=== PATIENT | female | born 1965 | race Caucasian/White ===

== ENCOUNTER 2016-05-09 15:32 | Emergency (ER) | payer OTHER, MEDICAID ==
[2016-05-09 15:39] VITALS: RESP 18
[2016-05-09] MEDS ORDERED: LORazepam 1 MG TAB PO ONE (15:42)
--- NOTE | 2016-05-09 15:45 | EDPHY ---
H & P Stated Complaint: WANTS ATIVAN REFILL Time Seen by Provider: 05/09/16 15:43 HPI/ROS: CHIEF COMPLAINT: Requesting Ativan HISTORY OF PRESENT ILLNESS: The patient presents to the emergency department via paramedics requesting Ativan. Due to the inclement weather she has been unable to get her typical Ativan. She takes this medication on a p.r.n. basis for bipolar mood disorder. The patient denies any acute medical complaints. She specifically denies chest pain, shortness of breath, fever, numbness, weakness. The patient does have a chronic resting tremor which has not acutely worsened. REVIEW OF SYSTEMS: A comprehensive 10 point review of systems is otherwise negative aside from elements mentioned in the history of present illness. Source: Patient Exam Limitations: No limitations - Personal History Current Tetanus/Diphtheria Vaccine: Yes Current Tetanus Diphtheria and Acellular Pertussis (TDAP): Yes - Medical/Surgical History Hx Asthma: No Hx Chronic Respiratory Disease: No Hx Diabetes: No Hx Cardiac Disease: No Hx Renal Disease: No Hx Cirrhosis: No Hx Alcoholism: No Hx HIV/AIDS: No Hx Splenectomy or Spleen Trauma: No Other PMH: bipolar, anxiety, appy, tremors - Social History Smoking Status: Current every day smoker - Physical Exam Exam: General Appearance: Alert, anxious Eyes: Pupils equal and round no pallor or injection ENT, Mouth: Mucous membranes moist Respiratory: There are no retractions, lungs are clear to auscultation Cardiovascular: Regular rate and rhythm Gastrointestinal: Abdomen is soft and nontender, no masses, bowel sounds normal Neurological: A&O, normal motor function, normal sensory exam, normal cranial nerves, resting tremor Skin: Warm and dry, no rashes Musculoskeletal: Neck is supple nontender Extremities: symmetrical, full range of motion Psychiatric: Patient is oriented X 3, there is no agitation, no suicidal ideation, no homicidal ideation Constitutional: Initial Vital Signs Temperature (C) 36.5 C 05/09/16 15:32 Heart Rate 96 05/09/16 15:32 Respiratory Rate 18 05/09/16 15:32 Blood Pressure 131/95 H 05/09/16 15:32 O2 Sat (%) 94 05/09/16 15:32 O2 Delivery Mode Room Air Allergies/Adverse Reactions: haloperidol [From Haldol] Allergy (Verified 10/05/13 16:46) haloperidol lactate [From Haldol] Allergy (Verified 10/05/13 16:46) lithium Allergy (Verified 10/05/13 16:46) marijuana Allergy (Verified 08/05/15 21:04) propranolol [Propranolol] Allergy (Verified 10/05/13 16:46) Home Medications: Medication Instructions Recorded Divalproex [Depakote] 1,000 mg PO DAILY 05/02/11 Paliperidone [Invega] 117 mg PO 05/02/11 QUETIAPINE FUMARATE [Seroquel] 300 mg PO DAILY 05/02/11 LORazepam [Ativan] 1 mg PO 12/10/14 LORazepam [Ativan] 1 mg PO BID PRN #8 tab 05/09/16 Medical Decision Making ED Course/Re-evaluation: The patient presents to the emergency department with anxiety and requesting an Ativan prescription. She is not suicidal or homicidal. The patient was given 1 mg of oral Ativan in the ED. The a patient will be given a prescription of Ativan for 3 days. She has been informed she needs to get further refills from her primary prescriber. - Data Points Medications Given: Discontinued Medications Lorazepam (Ativan) 1 mg PO EDNOW ONE Stop: 05/09/16 15:43 Last Admin: 05/09/16 15:46 Dose: 1 mg Departure - Departure Disposition: Home, Routine, Self-Care Clinical Impression: Anxiety Condition: Good Instructions: Anxiety (ED) Additional Instructions: 1. Please follow up with [facility] for your regular medications. 2. We will not provide Ativan prescriptions from the emergency department in the future. Referrals: Vishal Ferreira MD [Primary Care Provider] - As per Instructions
[2016-05-09 16:43] VITALS: BP 133/92; PULSE 98; TEMP 97.9; O2SAT 93
== END 2016-05-09 16:42 | disposition home or self-care (01) ==
LOC: EDUNIT#
DX: F41.9 Anxiety disorder, unspecified (principal); F17.200 Nicotine dependence, unspecified, uncomplicated

== ENCOUNTER 2016-05-30 15:03 | Emergency (ER) | payer OTHER, MEDICAID ==
--- NOTE | 2016-05-30 15:16 | EDPHY ---
H & P Time Seen by Provider: 05/30/16 15:14 HPI/ROS: CHIEF COMPLAINT: Anxiety HISTORY OF PRESENT ILLNESS: The patient has a history of chronic bipolar mood disorder. She was at the [facility] earlier today and received 2 mg of Ativan for an episode of anxiety. The patient reportedly was offered observation at the [facility] however preferred to be transferred to the emergency department for observation. In the ED she reports she has been compliant with her typical medications for bipolar mood disorder including injectable Invega, Depakote and Seroquel. The patient states she received Ativan approximately 40 minutes ago and is starting to feel better. She denies any suicidal or homicidal ideation. The patient denies any auditory or visual hallucinations. REVIEW OF SYSTEMS: A comprehensive 10 point review of systems is otherwise negative aside from elements mentioned in the history of present illness. Source: Patient Exam Limitations: No limitations - Medical/Surgical History Hx Asthma: No Hx Chronic Respiratory Disease: No Hx Diabetes: No Hx Cardiac Disease: No Hx Renal Disease: No Hx Cirrhosis: No Hx Alcoholism: No Hx HIV/AIDS: No Hx Splenectomy or Spleen Trauma: No Other PMH: bipolar, anxiety, appy, tremors - Social History Smoking Status: Current every day smoker - Physical Exam Exam: General Appearance: Alert, slightly disheveled, no acute distress Eyes: Pupils equal and round no pallor or injection ENT, Mouth: Mucous membranes moist Respiratory: There are no retractions, lungs are clear to auscultation Cardiovascular: Regular rate and rhythm Gastrointestinal: Abdomen is soft and nontender, no masses, bowel sounds normal Neurological: Grossly normal motor exam with 5/5 strength all 4 extremities Skin: Warm and dry, no rashes Musculoskeletal: Neck is supple nontender Extremities: symmetrical, full range of motion Psychiatric: Anxious, alert and oriented x3, denies suicidal ideation, denies suicidal ideation, denies hallucinations Constitutional: Initial Vital Signs Temperature (C) 36.8 C 05/30/16 15:22 Heart Rate 113 H 05/30/16 15:22 Respiratory Rate 18 05/30/16 15:22 Blood Pressure 146/93 H 05/30/16 15:22 O2 Sat (%) 95 05/30/16 15:22 O2 Delivery Mode Room Air Allergies/Adverse Reactions: haloperidol [From Haldol] Allergy (Verified 10/05/13 16:46) haloperidol lactate [From Haldol] Allergy (Verified 10/05/13 16:46) lithium Allergy (Verified 10/05/13 16:46) marijuana Allergy (Verified 08/05/15 21:04) propranolol [Propranolol] Allergy (Verified 10/05/13 16:46) Home Medications: Medication Instructions Recorded Divalproex [Depakote] 1,000 mg PO DAILY 05/02/11 Paliperidone [Invega] 117 mg PO 05/02/11 QUETIAPINE FUMARATE [Seroquel] 300 mg PO DAILY 05/02/11 LORazepam [Ativan] 1 mg PO 12/10/14 LORazepam [Ativan] 1 mg PO BID PRN #8 tab 05/09/16 Medical Decision Making ED Course/Re-evaluation: The patient does not meet criteria for 72 hour mental health hold. She was offered observation in the ED for her anxiety. She received Ativan prior to arrival. Update at 4:30 p.m.: The patient states her anxiety has resolved. She continues to deny suicidal or homicidal ideation. She would like to be discharged from the ED. She will follow up with [facility] as scheduled for her regular psychiatric medications. Differential Diagnosis: Differential diagnosis considered includes bipolar mood disorder, anxiety, psychosis Departure - Departure Disposition: Home, Routine, Self-Care Clinical Impression: Anxiety Condition: Good Instructions: Anxiety (ED) Referrals: Vishal Ferreira MD [Primary Care Provider] - As per Instructions
[2016-05-30 15:24] VITALS: RESP 18
[2016-05-30 16:55] VITALS: BP 120/88; PULSE 116; TEMP 97.5; O2SAT 93
== END 2016-05-30 17:00 | disposition home or self-care (01) ==
LOC: EDUNIT#
DX: F41.9 Anxiety disorder, unspecified (principal); F17.200 Nicotine dependence, unspecified, uncomplicated

== ENCOUNTER 2017-03-23 12:44 | Emergency (ER) | payer OTHER, MEDICAID ==
--- NOTE | 2017-03-23 12:49 | EDPHY ---
H & P - Medical/Surgical History Hx Asthma: No Hx Chronic Respiratory Disease: No Hx Diabetes: No Hx Cardiac Disease: No Hx Renal Disease: No Hx Cirrhosis: No Hx Alcoholism: No Hx HIV/AIDS: No Hx Splenectomy or Spleen Trauma: No Other PMH: bipolar, anxiety, appy, tremors - Social History Smoking Status: Current every day smoker Time Seen by Provider: 03/23/17 12:48 Constitutional: Initial Vital Signs Temperature (C) 37.1 C 03/23/17 12:44 Heart Rate 101 H 03/23/17 12:44 Respiratory Rate 16 03/23/17 12:44 Blood Pressure 132/94 H 03/23/17 12:44 O2 Sat (%) 93 03/23/17 12:44 O2 Delivery Mode Room Air Allergies/Adverse Reactions: haloperidol [From Haldol] Allergy (Verified 10/05/13 16:46) haloperidol lactate [From Haldol] Allergy (Verified 10/05/13 16:46) lithium Allergy (Verified 10/05/13 16:46) marijuana Allergy (Verified 08/05/15 21:04) propranolol [Propranolol] Allergy (Verified 10/05/13 16:46) Home Medications: Medication Instructions Recorded Divalproex [Depakote] 1,000 mg PO DAILY 05/02/11 Paliperidone [Invega] 117 mg PO 05/02/11 QUETIAPINE FUMARATE [Seroquel] 300 mg PO DAILY 05/02/11 LORazepam [Ativan] 1 mg PO 12/10/14 LORazepam [Ativan] 1 mg PO BID PRN #8 tab 05/09/16 Medical Decision Making ED Course/Re-evaluation: CHIEF COMPLAINT: Psychiatric evaluation HISTORY OF PRESENT ILLNESS: 52-year-old female with longstanding bipolar disorder diagnosis and treatment. She is like her treatments not working as well anymore. Things are making her very anxious and she does not feel like she is functioning well. She denies hallucinations. She denies any suicidality or homicidality. She states that she just does not feel safe in she feels like she can make good decisions and she feels very shaky and very anxious. This has been worsening over the last several days. She is specifically requesting to be admitted to [facility]. REVIEW OF SYSTEMS: A 10 point review of systems was performed and is negative with the exception of the elements mentioned in the history of present illness. PHYSICAL EXAM: General Appearance: Alert, well hydrated, appropriate, and non-toxic appearing. Head: Atraumatic without scalp tenderness or obvious injury Eyes: Pupils equal, round, reactive to light and accommodation, EOMI, no trauma , no injection. Ears: Clear bilaterally, no perforation, normal landmarks Nose: Atraumatic, no rhinorrhea, clear. Throat: There is no erythema or exudates, no lesions, normal tonsils, mucus membranes moist. Neck: Supple, 2+ carotid upstroke, nontender, no lymphadenopathy. Respiratory: No retractions, no distress, no wheezes, and no accessory muscle use. Lungs are clear to auscultation bilaterally. Cardiovascular: Regular rate and rhythm, no murmurs, rubs, or gallops. Bilateral carotid, radial, dorsalis pedis, and posterior tibial pulses intact. Good capillary refill all extremities. Gastrointestinal: Abdomen is soft, nontender, non-distended, no masses, no rebound, no guarding, no peritoneal signs. Musculoskeletal: Normal active ROM of all extremities, atraumatic. Neurological: Alert, appropriate, and interactive. The patient has normal DTRs and non-focal cranial nerves, motor, sensory, and cerebellar exam. Skin: No rashes, good turgor, no nodules on palpation. Past medical history: Bipolar disorder Past surgical history: Noncontributory Family history: Noncontributory Social history: Single, not employed, uses cigarettes, denies alcohol or drug abuse DIFFERENTIAL DIAGNOSIS: The differential diagnosis for the patient's depression included but was not limited to functional and major depression, situational depression, medication side effect, drugs, and alcohol abuse. MEDICAL DECISION MAKING: Patient is in no acute distress and is hemodynamically stable. We are awaiting psychiatric team's evaluation. Patient has known history of psychiatric disorders and is here for evaluation. We will attempt to place this patient in [place] if she meets criteria based on the psychiatric evaluation. ( Bon Smith) I assumed care of the patient at 2:00 p.m. pending psychiatric evaluation. Update at 6:00 p.m.: The patient was seen by [facility]. She is well known to their service. She currently is bola for safety. She is not suicidal or homicidal. She would like to be discharged home and follow up with [facility] as an outpatient tomorrow. This is reasonable. The patient does not meet criteria for a involuntary psychiatric hold. (Bulmaro Silver) - Data Points Laboratory Results: Laboratory Results 03/23/17 13:20 03/23/17 13:20 03/23/17 03/23/17 03/23/17 13:20 13:20 13:20 WBC 8.97 10^3/uL 10^3/uL (3.80-9.50) RBC 4.18 10^6/uL 10^6/uL (4.18-5.33) Hgb 13.1 g/dL g/dL (12.6-16.3) Hct 37.6 % L % (38.0-47.0) MCV 90.0 fL fL (81.5-99.8) MCH 31.3 pg pg (27.9-34.1) MCHC 34.8 g/dL g/dL (32.4-36.7) RDW 12.8 % % (11.5-15.2) Plt Count 139 10^3/uL L 10^3/uL (150-400) MPV 9.0 fL fL (8.7-11.7) Neut % (Auto) 70.2 % % (39.3-74.2) Lymph % (Auto) 21.1 % % (15.0-45.0) [place] % (Auto) 7.7 % % (4.5-13.0) Eos % (Auto) 0.3 % L % (0.6-7.6) Baso % (Auto) 0.4 % % (0.3-1.7) Nucleat RBC Rel Count 0.0 % % (0.0-0.2) Absolute Neuts (auto) 6.29 10^3/uL 10^3/uL (1.70-6.50) Absolute Lymphs (auto) 1.89 10^3/uL 10^3/uL (1.00-3.00) Absolute Monos (auto) 0.69 10^3/uL 10^3/uL (0.30-0.80) Absolute Eos (auto) 0.03 10^3/uL 10^3/uL (0.03-0.40) Absolute Basos (auto) 0.04 10^3/uL 10^3/uL (0.02-0.10) Absolute Nucleated RBC 0.00 10^3/uL 10^3/uL (0-0.01) Immature Gran % 0.3 % % (0.0-1.1) Immature Gran # 0.03 10^3/uL 10^3/uL (0.00-0.10) Sodium 144 mEq/L mEq/L (134-144) Potassium 4.2 mEq/L mEq/L (3.5-5.2) Chloride 107 mEq/L mEq/L (97-110) Carbon Dioxide 25 mEq/l mEq/l (22-31) Anion Gap 12 mEq/L mEq/L (8-16) BUN 11 mg/dL mg/dL (7-23) Creatinine 1.1 mg/dL H mg/dL (0.6-1.0) Estimated GFR 52 Glucose 83 mg/dL mg/dL (70-100) Calcium 10.6 mg/dL H mg/dL (8.5-10.4) Beta HCG, Qual NEGATIVE Salicylates < 1.0 mg/dL L mg/dL (2.0-20.0) Urine Opiates Screen Acetaminophen < 10 mcg/mL L mcg/mL (10-30) Urine Barbiturates Ur Phencyclidine Scrn Ur Amphetamine Screen U Benzodiazepines Scrn Urine Cocaine Screen U Marijuana (THC) Screen Ethyl Alcohol < 10 mg/dL mg/dL (0-10) 03/23/17 13:05 WBC RBC Hgb Hct MCV MCH MCHC RDW Plt Count MPV Neut % (Auto) Lymph % (Auto) [place] % (Auto) Eos % (Auto) Baso % (Auto) Nucleat RBC Rel Count Absolute Neuts (auto) Absolute Lymphs (auto) Absolute Monos (auto) Absolute Eos (auto) Absolute Basos (auto) Absolute Nucleated RBC Immature Gran % Immature Gran # Sodium Potassium Chloride Carbon Dioxide Anion Gap BUN Creatinine Estimated GFR Glucose Calcium Beta HCG, Qual Salicylates Urine Opiates Screen NEGATIVE (NEGATIVE) Acetaminophen Urine Barbiturates NEGATIVE (NEGATIVE) Ur Phencyclidine Scrn NEGATIVE (NEGATIVE) Ur Amphetamine Screen NEGATIVE (NEGATIVE) U Benzodiazepines Scrn NON-NEGATIVE H (NEGATIVE) Urine Cocaine Screen NEGATIVE (NEGATIVE) U Marijuana (THC) Screen NEGATIVE (NEGATIVE) Ethyl Alcohol Departure - Departure Disposition: Home, Routine, Self-Care Clinical Impression: Anxiety Bipolar disorder Qualifiers: Active/Remission status: currently active Current bipolar episode type: hypomanic Qualified Code(s): F31.0 - Bipolar disorder, current episode hypomanic Condition: Good Instructions: Generalized Anxiety Disorder (ED) Additional Instructions: 1. Please follow-up with the mental health resources provided in the ED today. 2. [facility] does operate a 24/7 psychiatric crisis unit located at [address] [place] [address]. The telephone number for the 24 hour crisis center is [phone]. 3. Please return to the ED if you are feeling suicidal, having thoughts of harming yourself/others or should you feel unsafe or have worsening symptoms. Referrals: [facility],. [Clinic] - As per Instructions
[2017-03-23 13:35] LABS: % IMMATURE GRANULYOCYTES 0.3 % (0.0-1.1); ABSOLUTE IMMATURE GRANULOCYTES 0.03 10^3/uL (0.00-0.10); ADD DIFF? NO; ADD MORPH? NO; ADD SCAN? NO; ATYPICAL LYMPHOCYTE FLAG 0 (0-99); FRAGMENT RBC FLAG 0 (0-99); HEMATOCRIT 37.6 % (38.0-47.0); HEMOGLOBIN 13.1 g/dL (12.6-16.3); LEFT SHIFT FLG 0 (0-99); LIPEMIA HEMOLYSIS FLAG 90 (0-99); MEAN CELL HEMOGLOBIN 31.3 pg (27.9-34.1); MEAN CELL HEMOGLOBIN CONCENTR. 34.8 g/dL (32.4-36.7); PLATELET CLUMPS FLAG 0 (0-99); PLATELET COUNT 139 10^3/uL (150-400); RED BLOOD CELL COUNT 4.18 10^6/uL (4.18-5.33); RED CELL DISTRIBUTION WIDTH 12.8 % (11.5-15.2)
[2017-03-23 13:52] LABS: ANION GAP 12 mEq/L (8-16); CALCIUM 10.6 mg/dL (8.5-10.4); CARBON DIOXIDE 25 mEq/l (22-31); CHLORIDE 107 mEq/L (97-110); CREATININE 1.1 mg/dL (0.6-1.0); ETHANOL SERUM < 10 mg/dL (0-10); GLOMERULAR FILTRATION RATE 52; GLUCOSE 83 mg/dL (70-100); POTASSIUM 4.2 mEq/L (3.5-5.2); SALICYLATE < 1.0 mg/dL (2.0-20.0); SODIUM 144 mEq/L (134-144)
[2017-03-23 16:26] VITALS: O2SAT 92
[2017-03-23 18:12] VITALS: BP 115/69; PULSE 78; RESP 16; TEMP 98.4
== END 2017-03-23 18:10 | disposition home or self-care (01) ==
LOC: EDUNIT#
DX: F31.0 Bipolar disorder, current episode hypomanic (principal); F17.210 Nicotine dependence, cigarettes, uncomplicated
CPT/HCPCS: 80305; G0480

== ENCOUNTER 2017-03-25 09:28 | Emergency (ER) | payer OTHER, MEDICAID ==
[2017-03-25 09:35] VITALS: RESP 18
--- NOTE | 2017-03-25 09:40 | EDPHY ---
General Narrative: CHIEF COMPLAINT: Anxiety, tremor HISTORY OF PRESENT ILLNESS: Patient presents by EMS with reports of anxiety interim. This has been present for 2 days. No quantifying factors provided. No chest pain. No shortness of breath. Patient was recently here for similar complaints. She was treated and discharged home. She followed up at [facility] for medication evaluation. Symptoms have worsened despite taking 2 mg of Ativan this morning. No suicidal thoughts. No other associated complaints. No other modifying factors. REVIEW OF SYSTEMS: Ten systems reviewed and are negative unless otherwise noted in the HPI PCP: Dr. Clark SPECIALISTS: [facility] PAST MEDICAL HISTORY: Bipolar disorder, anxiety PAST SURGICAL HISTORY: Appendectomy SOCIAL HISTORY: Nonsmoker. FAMILY HISTORY: Noncontributory EXAMINATION General Appearance: Alert, no distress, hyperkinetic Head: normocephalic, atraumatic Eyes: Pupils equal and round, no conjunctival pallor or injection ENT, Mouth: Mucous membranes moist. Airway patent. Tongue rolling and lip smacking. Neck: Normal inspection, supple, non-tender Respiratory: No retractions or distress. Cardiovascular: Regular rate. Good signs of perfusion distally Neurological: A&O, nonfocal, strength is symmetric. Resting tremulous hyperkinetic movements. Skin: Warm and dry, no rash. No petechiae or purpura Extremities: Nontender, no pedal edema Psychiatric: Anxious mood. Flat affect. Not suicidal. Not homicidal. DIFFERENTIAL DIAGNOSES: Including but not limited to tardive dyskinesia, anxiety reaction, tremor MDM: 9:40 a.m. Acute anxiety reaction and hyperkinetic movements. Hyperkinetic movements are consistent with tardive dyskinesia. Vital signs were stable. She is in no acute distress. The patient's RN, Harmony, also took care of the patient earlier this week. She informs me that today's presentation is no different than what she presented as 2 days ago. Suspect this is likely exacerbation due to her antipsychotics. I have ordered Benadryl. She is in no acute distress. 10:15 a.m. RN informs me that the patient is feeling better on the Benadryl. She is asking for food. Case management will visit with her. 11:13 a.m. Patient re-evaluated. She is feeling somewhat better. Case management evaluation is pending. 11:44 a.m. Patient re-evaluated. She has also been evaluated by case management. film washer has discussed with [facility]. The patient has had recent medication reconciliation. [facility] states she is likely her baseline with tremor. They will see her soon for help with medication reconciliation. They will also help attempt to move her May primary care physician appointment sooner. Patient is comfortable with this. She is discharged in stable condition. - History Smoking Status: Current every day smoker - Objective Vital Signs: Initial Vital Signs Temperature (C) 97.7 F 03/25/17 09:31 Heart Rate 102 H 03/25/17 09:31 Respiratory Rate 18 03/25/17 09:31 Blood Pressure 116/86 H 03/25/17 09:31 O2 Sat (%) 92 03/25/17 09:31 Allergies/Adverse Reactions: haloperidol [From Haldol] Allergy (Verified 10/05/13 16:46) haloperidol lactate [From Haldol] Allergy (Verified 10/05/13 16:46) lithium Allergy (Verified 10/05/13 16:46) marijuana Allergy (Verified 08/05/15 21:04) propranolol [Propranolol] Allergy (Verified 10/05/13 16:46) Home Medications: Medication Instructions Recorded Divalproex [Depakote] 1,000 mg PO DAILY 05/02/11 Paliperidone [Invega] 117 mg PO 05/02/11 QUETIAPINE FUMARATE [Seroquel] 300 mg PO DAILY 05/02/11 LORazepam [Ativan] 1 mg PO 12/10/14 LORazepam [Ativan] 1 mg PO BID PRN #8 tab 05/09/16 Cogentin 03/25/17 Medications Given: Discontinued Medications Diphenhydramine HCl (Benadryl Injection) 50 mg IM EDNOW ONE Stop: 03/25/17 09:37 Last Admin: 03/25/17 09:49 Dose: 50 mg Departure - Departure Disposition: Home, Routine, Self-Care Clinical Impression: Tremor, Anxiety Condition: Good Instructions: Tremors (ED) Additional Instructions: 1. Continue outpatient instructions as discussed 2. ED precautions as discussed Referrals: Vishal Ferreira MD [Primary Care Provider] - As per Instructions
[2017-03-25 12:05] VITALS: BP 118/78; PULSE 85; TEMP 97.5; O2SAT 96
--- NOTE | 2017-03-25 12:30 | ASMTCMCOM ---
CORBY Note CM Note Notes: Patient presents to the ER today via EMS with c/o anxiety. She was here two days ago with similar complaints and reports that she went to her scheduled appointment at [facility] ([facility]) yesterday. Patient is very pleasant when I met with her and tells me she called an ambulance because of "Anxiety". She is able to tell me what medication she takes and confirms that she has her prescribed medication at home. She does have a 'tremor' and yawns frequently as we talk. She tells me that she does feel tired. I have called [facility] and spoken to Denice miranda patient and her coordination of care. Denice confirms that patient was at the clinic yesterday, met with the medication nurse, and that decision was made to discontinue the patient's Seroquel based on the complaints patient expressed at her visit. Denice tells me that the patient has a "baseline" tremor and anxiety. She also acknowledges that patient has demonstrated symptoms of tardive dyskinesia in the past, but that this was not thought to be a concern at this time. Patient is scheduled to see Dr. Ferreira in May and she is on a waiting list to get in to see the sooner if an appointment becomes available. I have informed patient that [facility] will contact her if they are able to move up her appointment with Dr. Ferreira. I have also encouraged her to follow up with the clinic with any medication or behavioral concerns. I have provided her with the 25/11 'Crisis" phone number [phone] as well. CM will continue to reach out to [facility] in coordination of care for this patient if/when she presents to the ER Date Signed: 03/25/2017 12:29 PM Electronically Signed By:Giulia Santos RN
== END 2017-03-25 12:01 | disposition home or self-care (01) ==
LOC: EDBD → EDUNIT#
DX: F41.9 Anxiety disorder, unspecified (principal); F17.200 Nicotine dependence, unspecified, uncomplicated
CPT/HCPCS: 96372; 99284; J1200

== ENCOUNTER 2017-03-28 14:35 | Emergency (ER) | payer OTHER, MEDICAID ==
--- NOTE | 2017-03-28 14:39 | EDPHY ---
H & P Time Seen by Provider: 03/28/17 14:39 HPI/ROS: CHIEF COMPLAINT: Tremor, anxiety HISTORY OF PRESENT ILLNESS: The patient has a history of chronic tardive dyskinesia and anxiety. She presents to the ED with symptoms of anxiety and an ongoing tremor. The patient has been seen in the emergency department for similar symptoms a number of times. She has been informed to follow up with [facility]. She continues to present to the ED for ongoing management of the symptoms. The patient denies any suicidal or homicidal ideation. She denies fever, cough or congestion. She denies additional complaints. REVIEW OF SYSTEMS: A comprehensive 10 point review of systems is otherwise negative aside from elements mentioned in the history of present illness. Source: Patient Exam Limitations: No limitations - Medical/Surgical History Hx Asthma: No Hx Chronic Respiratory Disease: No Hx Diabetes: No Hx Cardiac Disease: No Hx Renal Disease: No Hx Cirrhosis: No Hx Alcoholism: No Hx HIV/AIDS: No Hx Splenectomy or Spleen Trauma: No Other PMH: bipolar, anxiety, appy, tremors - Social History Smoking Status: Current every day smoker - Physical Exam Exam: General Appearance: Alert, no distress Eyes: Pupils equal and round no pallor or injection ENT, Mouth: Mucous membranes moist Respiratory: There are no retractions, lungs are clear to auscultation Cardiovascular: Regular rate and rhythm Gastrointestinal: Abdomen is soft and nontender, no masses, bowel sounds normal Neurological: Alert and oriented x4, 5/5 strength all 4 extremities, fine tremor consistent with likely a chronic tardive dyskinesia Skin: Warm and dry, no rashes Musculoskeletal: Neck is supple nontender Extremities: symmetrical, full range of motion Psychiatric: Endorses anxiety, denies suicidal or homicidal ideation Constitutional: Initial Vital Signs Temperature (C) 36.8 C 03/28/17 15:03 Heart Rate 100 03/28/17 15:03 Respiratory Rate 18 03/28/17 15:03 Blood Pressure 130/88 H 03/28/17 15:03 O2 Sat (%) 96 03/28/17 15:03 O2 Delivery Mode Room Air Allergies/Adverse Reactions: haloperidol [From Haldol] Allergy (Verified 10/05/13 16:46) haloperidol lactate [From Haldol] Allergy (Verified 10/05/13 16:46) lithium Allergy (Verified 10/05/13 16:46) marijuana Allergy (Verified 08/05/15 21:04) propranolol [Propranolol] Allergy (Verified 10/05/13 16:46) Home Medications: Medication Instructions Recorded Divalproex [Depakote] 1,000 mg PO DAILY 05/02/11 Paliperidone [Invega] 117 mg PO 05/02/11 QUETIAPINE FUMARATE [Seroquel] 300 mg PO DAILY 05/02/11 LORazepam [Ativan] 1 mg PO 12/10/14 LORazepam [Ativan] 1 mg PO BID PRN #8 tab 05/09/16 Cogentin 03/25/17 Medical Decision Making ED Course/Re-evaluation: I reviewed the patient's emergency department record from 3 days ago. I also reviewed the patient's extensive past medical history. The patient is noted to be neurologically intact. She does not meet criteria for 72 hour mental health hold. The patient is advised to return to the emergency department for any suicidal or homicidal ideation. Differential Diagnosis: Differential diagnosis considered includes psychosis, anxiety, schizophrenia, bipolar mood disorder Departure - Departure Disposition: Home, Routine, Self-Care Clinical Impression: Anxiety Condition: Good Instructions: Anxiety (ED) Additional Instructions: 1. Please follow-up with the [facility] as an outpatient. 2. [facility] does operate a 25/11 psychiatric crisis unit located at [address] [place] [address]. The telephone number for the 24 hour crisis center is [phone]. 3. Please return to the ED if you are feeling suicidal, having thoughts of harming yourself/others or should you feel unsafe or have worsening symptoms. Referrals: Vishal Ferreira MD [Primary Care Provider] - As per Instructions
[2017-03-28 15:04] VITALS: BP 130/88; PULSE 100; RESP 18; TEMP 98.2; O2SAT 96
--- NOTE | 2017-03-28 16:06 | ASMTCMCOM ---
CM Note CM Note Notes: Patient presented to the ED for anxiety; this is her 3rd visit this past week for the same complaint. Patient was seen by case management on 03/25/17, see CM Progress Note from that visit. Patient is to be discharged back home and encouraged to still follow-up with her provider at [facility] ([facility]). Patient was seen at the [facility] this past Saturday 03/24 and had her Seroquel discontinued. Patient has an appt with psychiatrist Dr Ferreira in May 2017 and is on the wait-list to get in sooner. Patient is well known to [facility] and is currently residing at [facility]'s [facility] ([phone]) through their respite program. This CM called and left a voicemail for staff at the [facility] program and also called and left voicemail for Denice at [facility] ([phone]) in order to reach out to staff there and see how we can better assist patient while she is in the ED or ensure she can followup outpatient. Reviewed patient's chart extensively, back to October 2013, where CM noted that the patient seems to call 911 to come to the ED for anxiety because she "feels safe" here and also possibly for attention getting purposes. In 2013 patient had her medications supervised/administered by staff at the [facility] and they had Ativan to give her PRN, but she would still call 911 to the ED. Not able to confirm if patient is still having medications supervised/administered by staff. Patient requestins cab voucher back home. Patient was informed she can call for a Medicaid/[employer] cab. Patient called from the waiting room and has scheduled a Medicaid/[employer] cab. CM available for further assistance. Date Signed: 03/28/2017 04:06 PM Electronically Signed By:Park Flowers RN
--- NOTE | 2017-03-28 16:08 | ASDISCHSUM ---
Discharge Information Plan Status:Home with No Needs Medically Cleared to Leave: Discharge Date:03/28/2017 03:28 PM CM D/C Disposition:Home, Routine, Self-Care ADT D/C Disposition:Home, Routine, Self-Care Projected Discharge Date:03/28/2017 03:28 PM Transportation at D/C:Medicaid Transportation Discharge Delay Reason: Follow-Up Date:03/28/2017 03:28 PM Discharge Slot: Final Diagnosis: Placement Information Patient Contact Information Contact Name:GAIL Relationship: Address: Work Phone: City: [facility] Phone: State/Zip Code: Email: Financial Information Financial Class: Primary Plan Desc:MEDICARE OUTPATIENT Primary Plan Number:[id number] Secondary Plan Desc:MEDICAID [facility] Secondary Plan Number:[id number] Assessment Information [facility] Progress Note CM Note CM Note Notes: Patient presented to the ED for anxiety; this is her 3rd visit this past week for the same complaint. Patient was seen by case management on 03/25/17, see CM Progress Note from that visit. Patient is to be discharged back home and encouraged to still follow-up with her provider at [facility] ([facility]). Patient was seen at the [facility] this past Saturday 03/24 and had her Seroquel discontinued. Patient has an appt with psychiatrist Dr Ferreira in May 2017 and is on the wait-list to get in sooner. Patient is well known to [facility] and is currently residing at [facility]'s [facility] ([phone]) through their respite program. This CM called and left a voicemail for staff at the [facility] program and also called and left voicemail for Denice at [facility] ([phone]) in order to reach out to staff there and see how we can better assist patient while she is in the ED or ensure she can followup outpatient. Reviewed patient's chart extensively, back to October 2013, where CM noted that the patient seems to call 911 to come to the ED for anxiety because she "feels safe" here and also possibly for attention getting purposes. In 2013 patient had her medications supervised/administered by staff at the [facility] and they had Ativan to give her PRN, but she would still call 911 to the ED. Not able to confirm if patient is still having medications supervised/administered by staff. Patient requestins cab voucher back home. Patient was informed she can call for a Medicaid/[employer] cab. Patient called from the waiting room and has scheduled a Medicaid/[employer] cab. available for further assistance. Date Signed: 03/28/2017 04:06 PM Electronically Signed By:Park Flowers RN LACE LACE Acuity / Level of Care Answers: No. 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
== END 2017-03-28 15:28 | disposition home or self-care (01) ==
LOC: EDUNIT#
DX: F41.9 Anxiety disorder, unspecified (principal); F17.200 Nicotine dependence, unspecified, uncomplicated

== ENCOUNTER 2017-03-28 20:19 | Emergency (ER) | payer OTHER, MEDICAID ==
[2017-03-28 20:27] VITALS: TEMP 98.8; O2SAT 93
[2017-03-28] MEDS ORDERED: LORazepam 1 MG TAB PO ONE (20:42)
--- NOTE | 2017-03-28 20:43 | EDPHY ---
General Narrative: CHIEF COMPLAINT: Panic attack HISTORY OF PRESENT ILLNESS: Patient arrives by EMS with reports of "I had another anxiety attack. I had a panic attack." She does not know what illicit to this. She was here earlier today, less than 4 hours ago. She was discharged in stable condition. She says that she did some laundry and then became very anxious and panicked. No chest pain. She took an Ativan with no relief over an hour ago. No shortness of breath. No suicidal ideation. No homicidal ideation. No obtainable modifying factors from the patient. No other associated complaints. REVIEW OF SYSTEMS: Ten systems reviewed and are negative unless otherwise noted in the HPI PCP: [facility] SPECIALISTS: Dr. Ferreira PAST MEDICAL HISTORY: Anxiety, bipolar disorder PAST SURGICAL HISTORY: Appendectomy SOCIAL HISTORY: Nonsmoker FAMILY HISTORY: Noncontributory EXAMINATION General Appearance: Alert, no distress, resting tremor Head: normocephalic, atraumatic Eyes: Pupils equal and round, no conjunctival pallor or injection ENT, Mouth: Mucous membranes moist. No trismus. Lip smacking and time rolling. Neck: Normal inspection, supple, non-tender Respiratory: Lungs are clear to auscultation Cardiovascular: Regular rate and rhythm. No murmur Neurological: A&O, nonfocal, strength symmetric. Resting tremor baseline Skin: Warm and dry, no rash Extremities: Nontender, no pedal edema Psychiatric: Anxious. Fidgeting. No SI. No HI. DIFFERENTIAL DIAGNOSES: Including but not limited to anxiety, depression, bipolar, Munchausen syndrome MDM: 8:42 p.m. Possible anxiety reaction in no acute distress. No chest pain. No hyperventilation. Vital signs are within normal limits. I have seen the patient recently this week. She appears to be a baseline if not improved. There has been documentation the patient may be returning frequently for attention seeking. She is in no acute distress and does not warrant any further workup at this time. I am comfortable with her being discharged home at this time. Patient is as well. I given her 1 mg p. o. Ativan and she would like to take a cab back home. There is extensive case management involvement earlier today with outpatient follow-up arranged. - History Smoking Status: Current every day smoker - Objective Vital Signs: Initial Vital Signs Temperature (C) 98.8 F 11/24/17 20:23 Heart Rate 91 03/28/17 20:23 Respiratory Rate 16 03/28/17 20:23 Blood Pressure 140/83 H 03/28/17 20:23 O2 Sat (%) 93 03/28/17 20:23 O2 Delivery Mode Room Air Allergies/Adverse Reactions: haloperidol [From Haldol] Allergy (Verified 10/05/13 16:46) haloperidol lactate [From Haldol] Allergy (Verified 10/05/13 16:46) lithium Allergy (Verified 10/05/13 16:46) marijuana Allergy (Verified 08/05/15 21:04) propranolol [Propranolol] Allergy (Verified 10/05/13 16:46) Home Medications: Medication Instructions Recorded Divalproex [Depakote] 1,000 mg PO DAILY 05/02/11 Paliperidone [Invega] 117 mg PO 05/02/11 QUETIAPINE FUMARATE [Seroquel] 300 mg PO DAILY 05/02/11 LORazepam [Ativan] 1 mg PO 12/10/14 LORazepam [Ativan] 1 mg PO BID PRN #8 tab 05/09/16 Cogentin 03/25/17 Departure - Departure Disposition: Home, Routine, Self-Care Clinical Impression: Anxiety with limited-symptom attacks Condition: Good Instructions: Anxiety (ED), Anxiolysis in Adults (ED) Additional Instructions: 1. Follow up as previously discussed with case management 2. ED precautions as discussed Referrals: Vishal Ferreira MD [Non Staff Provider (MD)] - As per Instructions
[2017-03-28 20:54] VITALS: BP 142/82; PULSE 78; RESP 17
== END 2017-03-28 20:53 | disposition home or self-care (01) ==
LOC: EDUNIT#
DX: F41.9 Anxiety disorder, unspecified (principal); F17.200 Nicotine dependence, unspecified, uncomplicated

== ENCOUNTER 2017-03-31 11:47 | Emergency (ER) | payer OTHER, MEDICAID ==
[2017-03-31 11:55] VITALS: BP 145/89; PULSE 90; RESP 18; TEMP 98.1; O2SAT 96
--- NOTE | 2017-03-31 12:22 | EDPHY ---
H & P Stated Complaint: anxiety--did not take her ativan this am Time Seen by Provider: 03/31/17 11:58 HPI/ROS: Chief complaint: Anxiety History of present illness: This is a 52-year-old female who presents to the emergency department with EMS for evaluation of anxiety. Patient states she started to feel very anxious this morning. She has a history of anxiety attacks. This is a typical exacerbation. Fact, she has been seen multiple times over the last week for the same. She does side call 911 to be evaluated, she has not taking her Ativan which she normally takes for anxiety. She denies other associated signs or symptoms. Review of systems: A 10 point review of systems was obtained and other than described above was negative. - Personal History LMP (Females 10-55): Unknown Current Tetanus/Diphtheria Vaccine: Unsure Current Tetanus Diphtheria and Acellular Pertussis (TDAP): Unsure - Medical/Surgical History Hx Asthma: No Hx Chronic Respiratory Disease: No Hx Diabetes: No Hx Cardiac Disease: No Hx Renal Disease: No Hx Cirrhosis: No Hx Alcoholism: No Hx HIV/AIDS: No Hx Splenectomy or Spleen Trauma: No Other PMH: bipolar, anxiety, appy, tremors - Social History Smoking Status: Current every day smoker - Physical Exam Exam: General Appearance: Alert, nontoxic. Eyes: Pupils equal and round no injection. Respiratory: Chest is non tender, lungs are clear to auscultation. Cardiac: regular rate and rhythm Gastrointestinal: Abdomen is soft and non tender, no masses, bowel sounds normal. Musculoskeletal: Neck is supple and non tender. Extremities have full range of motion and are non tender. Skin: No rashes or lesions. Neurological: Appears anxious. Tremulous. Strength and sensation intact. Constitutional: Initial Vital Signs Temperature (C) 36.7 C 03/31/17 11:51 Heart Rate 90 03/31/17 11:51 Respiratory Rate 18 03/31/17 11:51 Blood Pressure 145/89 H 03/31/17 11:51 O2 Sat (%) 96 03/31/17 11:51 O2 Delivery Mode Room Air Allergies/Adverse Reactions: haloperidol [From Haldol] Allergy (Verified 10/05/13 16:46) haloperidol lactate [From Haldol] Allergy (Verified 10/05/13 16:46) lithium Allergy (Verified 10/05/13 16:46) marijuana Allergy (Verified 08/05/15 21:04) propranolol [Propranolol] Allergy (Verified 10/05/13 16:46) Home Medications: Medication Instructions Recorded Divalproex [Depakote] 1,000 mg PO DAILY 05/02/11 Paliperidone [Invega] 117 mg PO 05/02/11 QUETIAPINE FUMARATE [Seroquel] 300 mg PO DAILY 05/02/11 LORazepam [Ativan] 1 mg PO 12/10/14 LORazepam [Ativan] 1 mg PO BID PRN #8 tab 05/09/16 Cogentin 03/25/17 Medical Decision Making ED Course/Re-evaluation: Patient is discussed with my secondary supervising physician Dr. Virgil Mccullough. Patient presents to the emergency room with EMS for anxiety. She has a long history of anxiety and has had multiple ED visits for the same. She reports this is a typical exacerbation. She does have Ativan but did not take any today. I have discussed with her that she needs to take her own Ativan to treat her anxiety. I do not appreciate need for further emergency department intervention or inpatient management. She is discharged home. Return precautions are given. Departure - Departure Disposition: Home, Routine, Self-Care Clinical Impression: Anxiety Condition: Good Instructions: Anxiety (ED) Additional Instructions: Please return home to take your Ativan as needed as directed for anxiety If you feels symptoms are worsening or new symptoms develop return to the emergency room for recheck Referrals: NONE *PRIMARY CARE P,. [Primary Care Provider] - As per Instructions [facility],. [Clinic] - As per Instructions [facility],. [Clinic] - As per Instructions
== END 2017-03-31 12:20 | disposition home or self-care (01) ==
LOC: EDUNIT#
DX: F41.9 Anxiety disorder, unspecified (principal); F17.200 Nicotine dependence, unspecified, uncomplicated

== ENCOUNTER 2017-04-03 13:04 | Emergency (ER) | payer OTHER, MEDICAID ==
[2017-04-03 13:13] VITALS: BP 144/88; PULSE 64; RESP 18; TEMP 97.7; O2SAT 94
--- NOTE | 2017-04-03 13:39 | EDPHY ---
H & P Stated Complaint: missed Mental health appointment today out of meds Time Seen by Provider: 04/03/17 13:13 HPI/ROS: CHIEF COMPLAINT: Requesting Ativan HISTORY OF PRESENT ILLNESS: The patient has a history of chronic anxiety and typically gets her medications filled through [facility]. She presents to the ED today requesting Ativan. The patient denies any suicidal or homicidal ideation. She denies any acute medical complaints. The patient has been seen in our emergency department a number of times with a similar presentation in the past. She has been informed that her chronic psychiatric medications will only be dispense through the mental health center. REVIEW OF SYSTEMS: A comprehensive 10 point review of systems is otherwise negative aside from elements mentioned in the history of present illness. Source: Patient Exam Limitations: No limitations - Personal History Current Tetanus Diphtheria and Acellular Pertussis (TDAP): Unsure - Medical/Surgical History Hx Asthma: No Hx Chronic Respiratory Disease: No Hx Diabetes: No Hx Cardiac Disease: No Hx Renal Disease: No Hx Cirrhosis: No Hx Alcoholism: No Hx HIV/AIDS: No Hx Splenectomy or Spleen Trauma: No Other PMH: bipolar, anxiety, appy, tremors - Social History Smoking Status: Current every day smoker - Physical Exam Exam: General Appearance: Elderly female, no acute distress Eyes: Pupils equal and round no pallor or injection ENT, Mouth: Mucous membranes moist Respiratory: There are no retractions, lungs are clear to auscultation Cardiovascular: Regular rate and rhythm Gastrointestinal: Abdomen is soft and nontender, no masses, bowel sounds normal Neurological: A&O, normal motor function, normal sensory exam, normal cranial nerves Skin: Warm and dry, no rashes Musculoskeletal: Neck is supple nontender Extremities: symmetrical, full range of motion Psychiatric: Patient is oriented X 3, there is no agitation, denies suicidal or homicidal ideation, endorses anxiety Constitutional: Initial Vital Signs Temperature (C) 36.5 C 04/03/17 13:11 Heart Rate 64 04/03/17 13:11 Respiratory Rate 18 04/03/17 13:11 Blood Pressure 144/88 H 04/03/17 13:11 O2 Sat (%) 94 04/03/17 13:11 O2 Delivery Mode Room Air Allergies/Adverse Reactions: haloperidol [From Haldol] Allergy (Verified 10/05/13 16:46) haloperidol lactate [From Haldol] Allergy (Verified 10/05/13 16:46) lithium Allergy (Verified 10/05/13 16:46) marijuana Allergy (Verified 08/05/15 21:04) propranolol [Propranolol] Allergy (Verified 10/05/13 16:46) Home Medications: Medication Instructions Recorded Divalproex [Depakote] 1,000 mg PO DAILY 05/02/11 Paliperidone [Invega] 117 mg PO 05/02/11 QUETIAPINE FUMARATE [Seroquel] 300 mg PO DAILY 05/02/11 LORazepam [Ativan] 1 mg PO 12/10/14 LORazepam [Ativan] 1 mg PO BID PRN #8 tab 05/09/16 Cogentin 03/25/17 Medical Decision Making ED Course/Re-evaluation: The patient presents to the ED requesting her outpatient psychiatric medications. The patient has been informed that we will not fill these medications in the emergency department. We did contact [facility] and they are willing to see the patient at the walk-in clinic today. The patient will be given a cab voucher so that she can get her regular medications. She does not meet criteria for a 72 hr mental health hold. Departure - Departure Disposition: Home, Routine, Self-Care Clinical Impression: Anxiety Condition: Good Instructions: Anxiety (ED) Additional Instructions: 1. Please go to [facility] to get her regular medications filled. 2. We are unable to dispense her chronic psychiatric medications in the emergency department. Referrals: [facility],. [Clinic] - As per Instructions
== END 2017-04-03 13:47 | disposition home or self-care (01) ==
LOC: EDUNIT#
DX: F41.9 Anxiety disorder, unspecified (principal); F17.200 Nicotine dependence, unspecified, uncomplicated

== ENCOUNTER 2017-04-07 17:22 | Emergency (ER) | payer OTHER, MEDICAID | END 2017-04-07 17:45 | disposition left against medical advice (07) | LOC: EDUNIT# | DX: Z53.21 Procedure and treatment not carried out due to patient leaving prior to being seen by health care provider (principal) ==

== ENCOUNTER 2017-04-08 10:12 | Emergency (ER) | payer OTHER, MEDICAID ==
--- NOTE | 2017-04-08 10:41 | EDPHY ---
H & P Stated Complaint: SI/M1 HOLD BY POLICE - Personal History LMP (Females 10-55): Post Menopausal Current Tetanus/Diphtheria Vaccine: Yes - Medical/Surgical History Hx Asthma: No Hx Chronic Respiratory Disease: No Hx Diabetes: No Hx Cardiac Disease: No Hx Renal Disease: No Hx Cirrhosis: No Hx Alcoholism: No Hx HIV/AIDS: No Hx Splenectomy or Spleen Trauma: No Other PMH: bipolar, anxiety, appy, tremors - Social History Smoking Status: Current every day smoker Time Seen by Provider: 04/08/17 10:23 HPI/ROS: CHIEF COMPLAINT: "I want to kill myself but I have no idea how to do it" HISTORY OF PRESENT ILLNESS: 52-year-old female history of schizoaffective disorder, anxiety disorder, arrives via police on an M1 hold complaining of suicidal ideation however states that she "does not know how to do it". She denies complaints of physical pain. Denies hallucination. Denies homicidal ideation. REVIEW OF SYSTEMS: A ten point review of systems was performed and is negative with the exception of the items mentioned in the HPI PAST MEDICAL & SURGICAL HISTORY: Schizoaffective disorder. Anxiety disorder. SOCIAL HISTORY:denies acute alcohol or drug use. PHYSICAL EXAM (Prior to examination, patient consented to physical exam, hands were washed and my usual and customary physical exam procedures followed) 1) GENERAL: Well-developed, well-nourished, alert and oriented. Appears anxious 2) HEAD: Normocephalic, atraumatic 3) HEENT: Pupils equal, round, reactive to light bilaterally. Sclera anicteric. 4) NECK: Full range of motion, no meningeal signs. 5) LUNGS: Clear auscultation bilaterally, no wheezes, no rhonchi, no retractions. 6) HEART: Regular rate and rhythm, no murmur, no heave, no gallop. 7) ABDOMEN: No guarding, no rebound, no focal tenderness, negative McBurney's, negative Salas's, negative Rovsing's, negative peritoneal sign, 8) MUSCULOSKELETAL: Moving all extremities, no focal areas of tenderness, no obvious trauma. No peripheral edema or discoloration. 9) BACK: No CVA tenderness, no midline vertebral tenderness, no fluctuance, no step-off, no obvious trauma, no visual or palpable abnormality. 10) SKIN: No rash, no petechiae. 11) Psychiatric: Patient is oriented X 3, there is no agitation. DIFFERENTIAL DIAGNOSIS: in no particular include but limited to depression, psychosis, ruthie, anxiety, suicidal ideation, homicidal ideation. (Oleg Dixon) Constitutional: Initial Vital Signs Temperature (C) 36.5 C 04/08/17 10:18 Heart Rate 98 04/08/17 10:18 Respiratory Rate 16 04/08/17 10:18 Blood Pressure 113/76 04/08/17 10:18 O2 Sat (%) 94 04/08/17 10:18 O2 Delivery Mode Room Air Allergies/Adverse Reactions: haloperidol [From Haldol] Allergy (Verified 04/08/17 10:16) haloperidol lactate [From Haldol] Allergy (Verified 04/08/17 10:16) lithium Allergy (Verified 04/08/17 10:16) marijuana Allergy (Verified 04/08/17 10:16) propranolol [Propranolol] Allergy (Verified 04/08/17 10:16) Home Medications: Medication Instructions Recorded Divalproex [Depakote] 1,000 mg PO DAILY 05/02/11 Paliperidone [Invega] 117 mg PO 05/02/11 QUETIAPINE FUMARATE [Seroquel] 300 mg PO DAILY 05/02/11 LORazepam [Ativan] 1 mg PO 12/10/14 LORazepam [Ativan] 1 mg PO BID PRN #8 tab 05/09/16 Cogentin 03/25/17 Medical Decision Making ED Course/Re-evaluation: 10:50 a.m.: Old medical records reviewed. Will obtain diagnostic studies and mental health evaluation.Care of patient under supervision of secondary supervising physician Dr Haddad . 5:00 p.m.: Care turned over to Dr. Lavell Lyons, awaiting mental health evaluation (Oleg Dixon) 9:30 a.m.-accepted at [facility], EMTALA completed (Nereyda Haddad) - Data Points Laboratory Results: Laboratory Results 04/08/17 10:45 04/08/17 10:45 Medications Given: Discontinued Medications Miscellaneous Medication (Non-Formulary) 1 ea PO EDNOW ONE Stop: 04/08/17 19:46 Last Admin: 04/08/17 19:52 Dose: 1 each Quetiapine Fumarate (Seroquel) 300 mg PO EDNOW ONE Stop: 04/08/17 19:16 Last Admin: 04/08/17 19:47 Dose: 300 mg Departure - Departure Disposition: Other Psych, Not [place] Clinical Impression: Suicidal ideation Condition: Fair Referrals: Vishal Ferreira MD [Primary Care Provider] - As per Instructions
[2017-04-08 10:55] LABS: % IMMATURE GRANULYOCYTES 0.4 % (0.0-1.1); ABSOLUTE IMMATURE GRANULOCYTES 0.03 10^3/uL (0.00-0.10); ADD DIFF? NO; ADD MORPH? NO; ADD SCAN? NO; ATYPICAL LYMPHOCYTE FLAG 0 (0-99); FRAGMENT RBC FLAG 0 (0-99); HEMATOCRIT 41.2 % (38.0-47.0); HEMOGLOBIN 13.7 g/dL (12.6-16.3); LEFT SHIFT FLG 0 (0-99); LIPEMIA HEMOLYSIS FLAG 80 (0-99); MEAN CELL HEMOGLOBIN 29.7 pg (27.9-34.1); MEAN CELL HEMOGLOBIN CONCENTR. 33.3 g/dL (32.4-36.7); MEAN CELL VOLUME 89.4 fL (81.5-99.8); MEAN PLATELET VOLUME 8.8 fL (8.7-11.7); PLATELET CLUMPS FLAG 10 (0-99); PLATELET COUNT 178 10^3/uL (150-400); RED BLOOD CELL COUNT 4.61 10^6/uL (4.18-5.33); RED CELL DISTRIBUTION WIDTH 12.2 % (11.5-15.2)
[2017-04-08 11:32] LABS: ANION GAP 15 mEq/L (8-16); CARBON DIOXIDE 21 mEq/l (22-31); CHLORIDE 105 mEq/L (97-110); CREATININE 1.1 mg/dL (0.6-1.0); ETHANOL SERUM < 10 mg/dL (0-10); GLOMERULAR FILTRATION RATE 52; GLUCOSE 115 mg/dL (70-100); POTASSIUM 4.6 mEq/L (3.5-5.2); SODIUM 141 mEq/L (134-144)
[2017-04-08] MEDS ORDERED: QUEtiapine FUMARATE 300 MG TAB PO ONE (19:15)
[2017-04-08] MEDS ORDERED: VALBENAZINE 40 MG PO ONE (19:45)
[2017-04-08] MEDS ORDERED: LORazepam 1 MG TAB PO ONE (22:32)
[2017-04-08 23:11] VITALS: RESP 16
[2017-04-09 08:11] VITALS: BP 121/71; PULSE 65; TEMP 97.9; O2SAT 94
== END 2017-04-09 11:43 ==
DX: R45.851 Suicidal ideations (principal); F17.200 Nicotine dependence, unspecified, uncomplicated
CPT/HCPCS: 80305; G0480

== ENCOUNTER 2017-04-26 12:14 | Emergency (ER) | payer OTHER, MEDICAID ==
[2017-04-26 12:27] VITALS: TEMP 98.2
--- NOTE | 2017-04-26 12:38 | EDPHY ---
H & P Smoking Status: Current every day smoker Time Seen by Provider: 04/26/17 12:31 HPI/ROS: CHIEF COMPLAINT: "I'm anxious and having a panic attack " HISTORY OF PRESENT ILLNESS: 52-year-old female history of bipolar disorder call 911 for self-described panic attack. Denies illicit drug or alcohol use. Denies complaints of pain or discomfort. Denies chest pain. Denies back pain. Denies headache. Denies suicidal or homicidal ideation. Denies hallucination. PRIMARY CARE PROVIDER: REVIEW OF SYSTEMS: A ten point review of systems was performed and is negative with the exception of the items mentioned in the HPI PAST MEDICAL & SURGICAL HISTORY: Bipolar disorder SOCIAL HISTORY: Denies illicit drug or alcohol use, specifically denies methamphetamine use PHYSICAL EXAM (Prior to examination, patient consented to physical exam, hands were washed and my usual and customary physical exam procedures followed) 1) GENERAL: Well-developed, well-nourished, alert and oriented. Appears anxious , tremulous 2) HEAD: Normocephalic, atraumatic 3) HEENT: Pupils equal, round, reactive to light bilaterally. Sclera anicteric. 4) NECK: Full range of motion, no meningeal signs. 5) LUNGS: Clear auscultation bilaterally, no wheezes, no rhonchi, no retractions. 6) HEART: Regular rate and rhythm, no murmur, no heave, no gallop. 7) ABDOMEN: No guarding, no rebound, no focal tenderness, 8) MUSCULOSKELETAL: Tremulous No peripheral edema or discoloration. 9) BACK: No visual or palpable abnormality. 10) SKIN: No rash, no petechiae. 11) Psychiatric: Patient is oriented X 3, there is no agitation. DIFFERENTIAL DIAGNOSIS: In no particular order including but not limited to acute anxiety, suicidal ideation, homicidal ideation (Zack,Oleg Val) Constitutional: Initial Vital Signs Temperature (C) 36.8 C 04/26/17 12:21 Heart Rate 95 04/26/17 12:21 Respiratory Rate 20 04/26/17 12:21 Blood Pressure 152/86 H 04/26/17 12:21 O2 Sat (%) 92 04/26/17 12:21 O2 Delivery Mode Room Air Allergies/Adverse Reactions: haloperidol [From Haldol] Allergy (Verified 04/26/17 12:21) haloperidol lactate [From Haldol] Allergy (Verified 04/26/17 12:21) lithium Allergy (Verified 04/26/17 12:21) marijuana Allergy (Verified 04/26/17 12:21) propranolol [Propranolol] Allergy (Verified 04/26/17 12:21) Home Medications: Medication Instructions Recorded Divalproex [Depakote] 1,000 mg PO DAILY 05/02/11 Paliperidone [Invega] 117 mg PO 05/02/11 QUETIAPINE FUMARATE [Seroquel] 300 mg PO DAILY 05/02/11 LORazepam [Ativan] 1 mg PO 12/10/14 LORazepam [Ativan] 1 mg PO BID PRN #8 tab 05/09/16 Cogentin 03/25/17 MDM/Departure - MDM Medications Given: Discontinued Medications Lorazepam (Ativan) 2 mg PO EDNOW ONE Stop: 04/26/17 13:36 Last Admin: 04/26/17 13:42 Dose: 2 mg ED Course/Re-evaluation: Old medical records reviewed. Care of patient under supervision of secondary supervising physician Dr Nicholson . Re-evaluation after oral Ativan, feeling improvement. Continues to deny suicidal homicidal ideation. She will be discharged back to her apartment. Usual and customary psychiatric precautions instructions provided. (Oleg Dixon) I did not see this patient while she was in the emergency department. However her care was discussed with the PA while the patient was in the department. I agree with treatment plan and management. IM the secondary supervising physician (Abimael Nicholson) - Depart Disposition: Home, Routine, Self-Care Clinical Impression: Anxiety Condition: Good Instructions: Anxiety (ED) Additional Instructions: Follow up with your doctor at [facility] ([facility]): [address] [place] [address] Referrals: [facility],. [Clinic] - 04/29/17
[2017-04-26] MEDS ORDERED: LORazepam 1 MG TAB PO ONE (13:35)
[2017-04-26 14:08] VITALS: BP 154/84; PULSE 100; RESP 18; O2SAT 95
== END 2017-04-26 14:07 | disposition home or self-care (01) ==
LOC: EDUNIT#
DX: F41.9 Anxiety disorder, unspecified (principal); F17.200 Nicotine dependence, unspecified, uncomplicated

== ENCOUNTER 2017-05-01 15:14 | Emergency (ER) | payer OTHER, MEDICAID ==
[2017-05-01 15:20] VITALS: BP 140/91; PULSE 98; RESP 20; TEMP 97.7; O2SAT 93
--- NOTE | 2017-05-01 15:41 | EDPHY ---
H & P Stated Complaint: Anxiety Time Seen by Provider: 05/01/17 15:27 HPI/ROS: Chief Complaint: Anxiety, shaking HPI: A 52-year-old woman with a history of chronic anxiety and schizoaffective disorder is presenting today complaining of shaking and is requesting 2 mg of Ativan. Patient states that she has been taking her normal medications which include Depakote at home. She states she does have Ativan at home but rather than taking her medications she decided to come to the hospital. She states she did not take any Ativan today. No fevers or chills. No nausea or vomiting. She is not suicidal or depressed. She is not give me any reasons why she was not able to take her own medications at home today. She does states she has those prescriptions available to her. ROS: 10 point Review of Systems is negative except as noted in the HPI. PMH: Schizoaffective disorder, anxiety Social History: No smoking, no alcohol, no recreational drug use Family History: non-contributory Physical Exam: Gen: Awake, Alert, No Distress HEENT: Nose: no rhinorrhea Eyes: PERRLA, EOMI Mouth: Moist mucosa Neck: Supple, no JVD Chest: nontender, lungs clear to auscultation Heart: S1, S2 normal, no murmur Abd: Soft, non-tender, no guarding Back: no CVA tenderness, no midline tenderness Ext: no edema, non-tender Skin: no rash Neuro: CN II-XII intact, Sensation grossly intact, Strength 5/5 in bilateral upper and lower extremities - Personal History LMP (Females 10-55): Post Menopausal Current Tetanus/Diphtheria Vaccine: No Current Tetanus Diphtheria and Acellular Pertussis (TDAP): No - Medical/Surgical History Hx Asthma: No Hx Chronic Respiratory Disease: No Hx Diabetes: No Hx Cardiac Disease: No Hx Renal Disease: No Hx Cirrhosis: No Hx Alcoholism: No Hx HIV/AIDS: No Hx Splenectomy or Spleen Trauma: No Other PMH: bipolar, anxiety, appy, tremors - Social History Smoking Status: Current every day smoker Constitutional: Initial Vital Signs Temperature (C) 36.5 C 05/01/17 15:18 Heart Rate 98 05/01/17 15:18 Respiratory Rate 20 05/01/17 15:18 Blood Pressure 140/91 H 05/01/17 15:18 O2 Sat (%) 93 05/01/17 15:18 O2 Delivery Mode Room Air Allergies/Adverse Reactions: haloperidol [From Haldol] Allergy (Verified 04/26/17 12:21) haloperidol lactate [From Haldol] Allergy (Verified 04/26/17 12:21) lithium Allergy (Verified 04/26/17 12:21) marijuana Allergy (Verified 04/26/17 12:21) propranolol [Propranolol] Allergy (Verified 04/26/17 12:21) Home Medications: Medication Instructions Recorded Divalproex [Depakote] 1,000 mg PO DAILY 05/02/11 Paliperidone [Invega] 117 mg PO 05/02/11 QUETIAPINE FUMARATE [Seroquel] 300 mg PO DAILY 05/02/11 LORazepam [Ativan] 1 mg PO 12/10/14 LORazepam [Ativan] 1 mg PO BID PRN #8 tab 05/09/16 Cogentin 03/25/17 Medical Decision Making ED Course/Re-evaluation: Patient is presenting complaining of anxiety and requesting 2 mg of Ativan here. I have instructed her that since she has this medication at home it is not appropriate for her to come to the emergency department for this today. She should go home and take her old usual medications. She will follow up with her mental health providers as an outpatient. Departure - Departure Disposition: Home, Routine, Self-Care Clinical Impression: Anxiety Condition: Good Instructions: Anxiety (ED) Additional Instructions: Please take your own medications at home and do not come to the emergency department if you have these available to you. Follow up with [facility] in 1-2 days for further care. Referrals: [facility],. [Clinic] - As per Instructions
--- NOTE | 2017-05-01 16:57 | ASMTCMCOM ---
CM Note CM Note Notes: Patient noted on ER census and is frequent utilizer of ER for c/o anxiety. She is current with [facility] and [facility] and complex care coordination. I met with patient as she was being discharged and have communicated with eDnice at [facility] re this visit. CM continues to be available and will follow this patient Date Signed: 05/01/2017 04:56 PM Electronically Signed By:Giulia Santos RN
== END 2017-05-01 16:00 | disposition home or self-care (01) ==
LOC: EDBD → EDUNIT#
DX: F41.9 Anxiety disorder, unspecified (principal); F17.200 Nicotine dependence, unspecified, uncomplicated

== ENCOUNTER 2017-05-02 19:42 | Emergency (ER) | payer OTHER, MEDICAID ==
[2017-05-02] MEDS ORDERED: LORazepam 1 MG TAB PO ONE (20:00)
--- NOTE | 2017-05-02 20:00 | EDPHY ---
H & P Time Seen by Provider: 05/02/17 19:43 HPI/ROS: CHIEF COMPLAINT: Can't stop shaking HISTORY OF PRESENT ILLNESS: Patient is a history of schizoaffective disorder and anxiety and is on Depakote and Ativan. She takes her Depakote regularly and today took 2 mg of oral Ativan which is her prescribed daily dose. She has she took a single mg at 10:00 a.m. and another at 4:00 p.m.. She presents to the emergency department by EMS with increasing anxiety and stating that she can't stop shaking. Denies suicidal ideation or hallucinations. Not homicidal. She tried to relax by doing her usual listening to 1970s rock and roll, but she tells me that "3 dog night didn't make me better." REVIEW OF SYSTEMS: Eye: no change in vision ENT: no sore throat Cardiac: no chest pain or syncope Pulmonary: no cough or SOB Abdomen: no vomiting, diarrhea, abdominal pain Musculoskeletal: no back pain Skin: no rash Neuro: no headache Constitutional: no fever : no urinary symptoms A comprehensive 10 point review of systems is otherwise negative aside from elements mentioned in the history of present illness. PAST MEDICAL HISTORY: Schizoaffective disorder and anxiety Social history: No alcohol. She does have a brother she is in contact with and he lives in [place]. He gave her a new television back around [facility]. General Appearance: Alert and conversant, cooperative. Eyes: No scleral icterus. ENT, Mouth: Poor dentition but no gum swelling or trismus. Respiratory: Normal respiratory effort, breath sounds equal, lungs are clear to auscultation. Cardiovascular: Regular rate and rhythm. Gastrointestinal: Abdomen is soft and non tender. Neurological: Alert, moves all 4 extremities, fluent speech. Skin: Warm and dry, no rashes. Musculoskeletal: No peripheral edema. Psychiatric: Not agitated. Very anxious. Denies suicidal or homicidal ideation or hallucinations. Emergency Department course/MDM: The patient has anxiety and was given additional 1 mg oral Ativan. This is a chronic problem with an ache acute mild exacerbation. She does not appear to meet criteria for mental health hold. Smoking Status: Current every day smoker Constitutional: Initial Vital Signs Temperature (C) 36.4 C 05/02/17 19:45 Heart Rate 66 05/02/17 19:45 Respiratory Rate 18 05/02/17 19:45 Blood Pressure 141/93 H 05/02/17 19:45 O2 Sat (%) 93 05/02/17 19:45 O2 Delivery Mode Room Air Allergies/Adverse Reactions: haloperidol [From Haldol] Allergy (Verified 04/26/17 12:21) haloperidol lactate [From Haldol] Allergy (Verified 04/26/17 12:21) lithium Allergy (Verified 04/26/17 12:21) marijuana Allergy (Verified 04/26/17 12:21) propranolol [Propranolol] Allergy (Verified 04/26/17 12:21) Home Medications: Medication Instructions Recorded Divalproex [Depakote] 1,000 mg PO DAILY 05/02/11 Paliperidone [Invega] 117 mg PO 05/02/11 QUETIAPINE FUMARATE [Seroquel] 300 mg PO DAILY 05/02/11 LORazepam [Ativan] 1 mg PO 12/10/14 LORazepam [Ativan] 1 mg PO BID PRN #8 tab 05/09/16 Cogentin 03/25/17 Medical Decision Making - Data Points Medications Given: Discontinued Medications Lorazepam (Ativan) 1 mg PO EDNOW ONE Stop: 05/02/17 20:01 Last Admin: 05/02/17 20:02 Dose: 1 mg Departure - Departure Disposition: Home, Routine, Self-Care Clinical Impression: Anxiety, Schizoaffective disorder, bipolar type Condition: Good Instructions: Anxiety (ED) Referrals: Vishal Ferreira MD [Non Staff Provider (MD)] - As per Instructions
[2017-05-02 20:03] VITALS: PULSE 74
[2017-05-02 20:51] VITALS: BP 131/74; RESP 16; TEMP 97.9; O2SAT 96
== END 2017-05-02 20:51 | disposition home or self-care (01) ==
LOC: EDUNIT#
DX: F41.9 Anxiety disorder, unspecified (principal); F31.9 Bipolar disorder, unspecified; F25.9 Schizoaffective disorder, unspecified; F17.200 Nicotine dependence, unspecified, uncomplicated

== ENCOUNTER 2017-05-03 17:02 | Emergency (ER) | payer OTHER, MEDICAID ==
[2017-05-03 17:06] VITALS: BP 151/94; PULSE 77; RESP 20; TEMP 97.7; O2SAT 95
--- NOTE | 2017-05-03 17:16 | EDPHY ---
H & P Time Seen by Provider: 05/03/17 17:02 HPI/ROS: CHIEF COMPLAINT: Anxiety HISTORY OF PRESENT ILLNESS: 52-year-old female presents to the emergency department by ambulance feeling extremely anxious. The patient has a history of bipolar and schizoaffective disorder. She has been coming to the emergency department multiple times over last several days requesting Ativan. She was prescribed Ativan for anxiety. She took her last dose at 9:30 a.m. this morning. She has an open client of [facility]. She is not suicidal or homicidal. Patient states she feels shaky. She does not know the triggers. She has been complaint with medications. REVIEW OF SYSTEMS: Constitutional: No fever, no chills. Eyes: No double or blurry vision. ENT: No sore throat. Respiratory: No cough, no shortness of breath. Cardiac: No chest pain. Gastrointestinal: No abdominal pain, vomiting or diarrhea. Genitourinary: No dysuria. Musculoskeletal: No neck or back pain. Skin: No rashes. Neurological: No headache. Past Medical/Surgical History: Bipolar, schizoaffective disorder Social History: Single Smoking Status: Current every day smoker Physical Exam: General Appearance: Alert, no distress. Not tremulous. Eyes: Pupils equal and round. Extraocular motions are all intact. ENT: Mouth: Mucous membranes moist. Respiratory: No wheezing, rhonchi, or rales, lungs are clear to auscultation. Cardiovascular: Regular rate and rhythm. Gastrointestinal: Abdomen is soft and nontender, no masses, no rebound or guarding, bowel sounds normal. Neurological: Alert and oriented x 3, cranial nerves II through XII grossly intact Skin: Warm and dry, no rashes. Musculoskeletal: Nontender to palpate along the cervical, thoracic or lumbar spine. Neck is supple. Extremities: Full range of motion and no peripheral edema. Psychiatric: Patient is oriented X 3, there is no agitation. Constitutional: Initial Vital Signs Temperature (C) 36.5 C 05/03/17 17:02 Heart Rate 77 05/03/17 17:02 Respiratory Rate 20 05/03/17 17:02 Blood Pressure 151/94 H 05/03/17 17:02 O2 Sat (%) 95 05/03/17 17:02 O2 Delivery Mode Room Air Allergies/Adverse Reactions: haloperidol [From Haldol] Allergy (Verified 05/03/17 17:04) haloperidol lactate [From Haldol] Allergy (Verified 05/03/17 17:04) lithium Allergy (Verified 05/03/17 17:04) marijuana Allergy (Verified 05/03/17 17:04) propranolol [Propranolol] Allergy (Verified 05/03/17 17:04) Home Medications: Medication Instructions Recorded Divalproex [Depakote] 1,000 mg PO DAILY 05/02/11 Paliperidone [Invega] 117 mg PO 05/02/11 QUETIAPINE FUMARATE [Seroquel] 300 mg PO DAILY 05/02/11 LORazepam [Ativan] 1 mg PO 12/10/14 LORazepam [Ativan] 1 mg PO BID PRN #8 tab 05/09/16 Cogentin 03/25/17 Medical Decision Making ED Course/Re-evaluation: This is the patient's sixth visit to the emergency department this month for symptoms of anxiety requesting Ativan. The telephonic case manager has spoken with [facility]. The patient does not want to go to [facility]. She is not suicidal or homicidal. She does not want to speak with mental health. She lives in a senior care type setting and they helped to manage her medications. She is requesting now to be discharged home. The protective services case worker helping to arrange for a cab to take her back to her home. She has a scheduled appointment with her psychiatrist which I encouraged her to keep. The telephonic case manager will also make a note with her therapist as well as [facility] to see if she can get a sooner appointment to discuss her medications. Differential Diagnosis: Depression including functional and major depression, situational depression, medication side effect, drugs and alcohol abuse. Departure - Departure Disposition: Home, Routine, Self-Care Clinical Impression: Anxiety Condition: Good Instructions: Anxiety (ED) Additional Instructions: [facility] to [facility] to [facility] your [facility]. [facility]errals: [facility],. [Clinic] - As per Instructions
--- NOTE | 2017-05-03 18:30 | ASDISCHSUM ---
Discharge Information Plan Status:Home with No Needs Medically Cleared to Leave: Discharge Date:05/03/2017 05:49 PM CM D/C Disposition:Home, Routine, Self-Care ADT D/C Disposition:Home, Routine, Self-Care Projected Discharge Date:05/03/2017 05:49 PM Transportation at D/C:Medicaid Transportation Discharge Delay Reason: Follow-Up Date:05/03/2017 05:49 PM Discharge Slot: Final Diagnosis: Placement Information Patient Contact Information Contact Name:GAIL Relationship: Address: Work Phone: City: [facility] Phone: State/Zip Code: Email: Financial Information Financial Class: Primary Plan Desc:MEDICARE OUTPATIENT Primary Plan Number:[id number] Secondary Plan Desc:MED[place] Secondary Plan Number:[id number] Assessment Information [facility] CM Progress Note CM Note CM Note Notes: Patient presented to the ED for the 12th time since 03/23/17; patient here for anxiety. When asked what the ED can do for her today, patient replied "I need Ativan." Patient states she picked up her last prescription of Ativan from [facility] this past . Patient denies taking more than prescribed but somehow patient has "ran out." Patient typically goes to [facility] every Friday and to strip picker her Ativan and other medications. Patient didn't get in this last Friday due to it being a holiday. When asked how she was able to get through this past , patient stated "I had some from the week before." Patient was informed she would not be receiving any Ativan from the ED. Patient now wants to go home. Patient offered a cab to [facility] to talk to someone about her anxiety and practice other coping skills. When asked what other things help her with her anxiety, patient responded "deep breathing, lying down and resting, listening to music." Patient states she doesn't want to go to the crisis center due to "it being too late, I'm too tired." We discussed her excessive use of the ED and how it is not appearing to help her or prevent further anxiety attacks, patient acknowledged this and agreed.Patient states she wants to go home "and just relax, go to bed." This CM asked if patient was going to just call 911 again and return to the ED, even though we will not be providing her any Ativan. Patient didn't answer, just stared at me. We discussed that maybe her provider needs to change her medication because Ativan doesn't seem to be working well enough and patient responded "No, Ativan is fine. I definitely need the Ativan. It is the Depakote that makes me sick. I want Ativan." Patient provided Medicaid cab transport (confirmation # [id number]) This CM plans to follow-up with patient's Accounts Manager and Restaurant Recruiter for [facility], Roxanne Lopes ([phone]) and Denice ([phone]) with [facility] on Friday05/06/16. Also will follow up with her apartment management team at [facility] ([phone]); to discuss maybe patient is not appropriate for [address] and needs higher level of care. Patient has an appointment with Dr Ferreira on 05/12/16. CM to follow. Date Signed: 05/03/2017 06:28 PM Electronically Signed By:Park Flowers RN Intervention Information Intervention Type:Transportation Date of Service:05/03/2017 06:29 PM Patient Type:Emergency Room Staff Member:ZARA Flowers, Park Hours:0.25 Discipline:Restaurant Recruiter Severity: Comment:Medicaid Cab through [facility].
== END 2017-05-03 17:49 | disposition home or self-care (01) ==
LOC: EDUNIT#
DX: F41.9 Anxiety disorder, unspecified (principal); F17.200 Nicotine dependence, unspecified, uncomplicated

== ENCOUNTER 2017-05-04 12:03 | Emergency (ER) | payer OTHER, MEDICAID ==
[2017-05-04 12:09] VITALS: BP 145/87; PULSE 89; RESP 20; TEMP 97.7; O2SAT 92
--- NOTE | 2017-05-04 12:41 | EDPHY ---
H & P Time Seen by Provider: 05/04/17 12:09 HPI/ROS: CHIEF COMPLAINT: Anxiety HISTORY OF PRESENT ILLNESS: This is the 4th emergency department in 4 days for this patient was schizoaffective disorder who presents with anxiety. She has bipolar type schizoaffective disorder and is prescribed Ativan and currently has it at home. However she presents saying she is feeling shaky and anxious. Denies suicidal or homicidal ideation or hallucinations. No seizure. No other medical complaints. She usually tries listen to music unknown make herself feel better but it did not so she came to the emergency department. REVIEW OF SYSTEMS: Eye: no change in vision ENT: No ENT symptoms Cardiac: no chest pain or syncope Pulmonary: No respiratory symptoms Abdomen: No abdominal pain or vomiting Musculoskeletal: No recent injury Skin: no rash Neuro: no headache Constitutional: no fever : no urinary symptoms A comprehensive 10 point review of systems is otherwise negative aside from elements mentioned in the history of present illness. PAST MEDICAL HISTORY: Includes appendectomy and schizoaffective disorder, bipolar type Social history: Lives independently by herself General Appearance: Alert and conversant, cooperative. Eyes: No scleral icterus. ENT, Mouth: Normal mucous membranes. Respiratory: Normal respiratory effort, breath sounds equal, lungs are clear to auscultation. Cardiovascular: Regular rate and rhythm. Gastrointestinal: Abdomen is soft and non tender. Neurological: Alert, face symmetric, normal motor and sensory in extremities. Skin: Warm and dry, no rashes. Musculoskeletal: No peripheral edema. Psychiatric: Mildly anxious. Speaks in full sentences. Denies suicidal ideation to me. Emergency Department course/MDM: Patient was seen by case management. She is prescribed Ativan and has it at home but she did not take it today. She is referred to the crisis Center. She does not appear to meet clinical indications for 72 hr mental health hold. Smoking Status: Current every day smoker Constitutional: Initial Vital Signs Temperature (C) 36.5 C 05/04/17 12:06 Heart Rate 89 05/04/17 12:06 Respiratory Rate 20 05/04/17 12:06 Blood Pressure 145/87 H 05/04/17 12:06 O2 Sat (%) 92 05/04/17 12:06 O2 Delivery Mode Room Air Allergies/Adverse Reactions: haloperidol [From Haldol] Allergy (Verified 05/04/17 12:05) haloperidol lactate [From Haldol] Allergy (Verified 05/04/17 12:05) lithium Allergy (Verified 05/04/17 12:05) marijuana Allergy (Verified 05/04/17 12:05) propranolol [Propranolol] Allergy (Verified 05/04/17 12:05) Home Medications: Medication Instructions Recorded Divalproex [Depakote] 1,000 mg PO DAILY 05/02/11 Paliperidone [Invega] 117 mg PO 05/02/11 QUETIAPINE FUMARATE [Seroquel] 300 mg PO DAILY 05/02/11 LORazepam [Ativan] 1 mg PO 12/10/14 LORazepam [Ativan] 1 mg PO BID PRN #8 tab 05/09/16 Cogentin 03/25/17 MDM/Departure - Depart Disposition: Home, Routine, Self-Care Clinical Impression: Anxiety Condition: Good Instructions: Anxiety (ED) Referrals: Vishal Ferreira MD [Primary Care Provider] - As per Instructions
--- NOTE | 2017-05-04 16:07 | ASMTCMCOM ---
CM Note CM Note Notes: Patient presented to the ED via EMS for anxiety. Patient was here yesterday for same chief complaint. Patient was triaged in the waiting room area, seen by ED MD Dr Cortez and discharged home. Patient called for her own Medicaid cab. This CM spoke at length with the patient in the waiting area about why she calls 911 when she has increased anxiety, versus going to the [facility] Walk-In Crisis Center. Patient states "because I am shaky and want Ativan." Patient reports she received 14 tabs of Ativan this past from her provider at [facility]; she is instructed to take two tabs per day. We discussed that given that information she should still have available Ativan at home. Patient agrees and says " I do, I took one this morning." We discussed how it appears unnecessary to ED providers why she comes to the ED for Ativan when she has Ativan at home; patient agrees this does not make sense and plans to take an Ativan when she gets home. We discussed other alternative coping skills to hep with her anxiety, such as deep breathing exercises, listening to music (patient states she likes 70's rhythm and blues). Patient also states she will call her brother when she gets home because talking to him can sometimes help. Patient didn't want to go to the crisis center or have this CM call her brother. Plan is for patient to take her own Ativan at home and practice the alternative coping skills. Patient is aware this CM will call her primary clinican, Roxanne Lopes at [facility] and Denice at [facility] on Friday to discuss a better solution for controlling her anxiety, such as maybe getting her into [facility] or a higher level of care. Date Signed: 05/04/2017 04:07 PM Electronically Signed By:Park Flowers RN
--- NOTE | 2017-05-04 16:10 | ASMTCMCOM ---
CM Note CM Note Notes: Approximately 45 minutes after patient was discharged from the ED and took a cab home, this CM received a call from [facility] saying patient had called 911 again for anxiety and was on scene with DEAN clinician (through [facility]). This CM provided information on today's earlier visit and our discharge plan. DEAN clinician assisted [facility] on scene and were able to conclude patient didn't require another ED visit today. CM available for further assistance. Date Signed: 05/04/2017 04:10 PM Electronically Signed By:Park Flowers RN
--- NOTE | 2017-05-04 16:12 | ASDISCHSUM ---
Discharge Information Plan Status:Home with No Needs Medically Cleared to Leave: Discharge Date:05/04/2017 01:00 PM CM D/C Disposition:Home, Routine, Self-Care ADT D/C Disposition:Home, Routine, Self-Care Projected Discharge Date:05/04/2017 01:00 PM Transportation at D/C:Medicaid Transportation Discharge Delay Reason: Follow-Up Date:05/04/2017 01:00 PM Discharge Slot: Final Diagnosis: Placement Information Patient Contact Information Contact Name:GAIL Relationship: Address: Work Phone: City: [facility] Phone: State/[place] [place] Code: Email: Financial Information Financial Class: Primary Plan Desc:MEDICARE OUTPATIENT Primary Plan Number:[id number] Secondary Plan Desc:MEDICAID HEALTH FIRST [place] Secondary Plan Number:[id number] Assessment Information [facility] Progress Note CM Note CM Note Notes: Patient presented to the ED via EMS for anxiety. Patient was here yesterday for same chief complaint. Patient was triaged in the waiting room area, seen by ED MD Dr Cortez and discharged home. Patient called for her own Medicaid cab. This CM spoke at length with the patient in the waiting area about why she calls 911 when she has increased anxiety, versus going to the [facility] Walk-In Crisis Center. Patient states "because I am shaky and want Ativan." Patient reports she received 14 tabs of Ativan this past from her provider at [facility]; she is instructed to take two tabs per day. We discussed that given that information she should still have available Ativan at home. Patient agrees and says " I do, I took one this morning." We discussed how it appears unnecessary to ED providers why she comes to the ED for Ativan when she has Ativan at home; patient agrees this does not make sense and plans to take an Ativan when she gets home. We discussed other alternative coping skills to hep with her anxiety, such as deep breathing exercises, listening to music (patient states she likes 70's rhythm and blues). Patient also states she will call her brother when she gets home because talking to him can sometimes help. Patient didn't want to go to the crisis center or have this CM call her brother. Plan is for patient to take her own Ativan at home and practice the alternative coping skills. Patient is aware this CM will call her primary clinican, Roxanne Lopes at [facility] and Denice at [facility] on Friday to discuss a better solution for controlling her anxiety, such as maybe getting her into [facility] or a higher level of care. Date Signed: 05/04/2017 04:07 PM Electronically Signed By:Park Flowers RN [facility] CM Progress Note CM Note CM Note Notes: Approximately 45 minutes after patient was discharged from the ED and took a cab home, this CM received a call from [facility] saying patient had called 911 again for anxiety and was on scene with DEAN strickland (through [facility]). This CM provided information on today's earlier visit and our discharge plan. DEAN strickland assisted [facility] on scene and were able to conclude patient didn't require another ED visit today. CM available for further assistance. Date Signed: 05/04/2017 04:10 PM Electronically Signed By:Park Flowers RN LACE LACE Acuity / Level of Care Answers: No. Emergency dept visits in Answers: 4+ last 6 months Score: 4 Date Signed: 05/04/2017 04:11 PM Electronically Signed By:Park Flowers RN Intervention Information Intervention Type:Education Family/Patient Date of Service:05/04/2017 04:11 PM Patient Type:Emergency Room Staff Member:ZARA Flowers Sharon Hours:0.5 Discipline:Plate Cutter Severity: Comment:
== END 2017-05-04 13:00 | disposition home or self-care (01) ==
LOC: EDUNIT#
DX: F41.9 Anxiety disorder, unspecified (principal); F17.200 Nicotine dependence, unspecified, uncomplicated

== ENCOUNTER 2017-05-05 14:54 | Emergency (ER) | payer OTHER, MEDICAID ==
[2017-05-05 15:08] VITALS: BP 170/96; PULSE 78; RESP 18; TEMP 98.2; O2SAT 99
--- NOTE | 2017-05-05 15:59 | ASMTCMCOM ---
CM Note CM Note Notes: Please see CM notes from the last several ER visits. Patient presents to ER waiting room via EMS after calling 911 with C/O anxiety. Patient met in the waiting room by this CM to discuss situation. Patient is well known by me and acknowledges this as I talk to her about her situation. She has presented to this ER 4+ times over the past few days. She admits to calling 911 for "anxiety and shaking" for which she has medication at home to treat. She is also able to talk with me about other methods of reducing her anxiety; music, talking to her brother, deep breathing. She is well aware of the 25/11 crisis center ([facility]) which is available to her via phone or walk in. When asked what patient would like to be seen in the ER for today she tells me "Ativan. I need Ativan". She admits to having her medications at home, including Ativan. I assured her that we would not be giving her Ativan. I offered to [facility] her to [facility] crisis center and she declines. I have tried to contact Toy (medicaid cab) and was on hold for > 5 min. I then offered to [facility] patient home and she agreed. "I will call my brother when I get home". Once again, I reminded her to consider calling the crisis center rather than EMS when she is feeling anxious. Patient nods yes. I have called Denice at [facility] and for updates and continued care coordination. CM will continue to asssit with this patient and complex care coordination Date Signed: 05/05/2017 03:59 PM Electronically Signed By:Giulia Santos RN
--- NOTE | 2017-05-06 19:39 | ASMTCMCOM ---
CM Note CM Note Notes: Followed up with patient's complex managed care specialist, Dneice ([phone]) at [facility] ([facility]), and she said that patient has been contacted by Roxanne Lopes and is going to get transferred to [facility] today. CM available for further assistance. Date Signed: 05/06/2017 07:38 PM Electronically Signed By:Park Flowers RN
== END 2017-05-05 15:26 | disposition left against medical advice (07) ==
LOC: EDUNIT#
DX: Z53.21 Procedure and treatment not carried out due to patient leaving prior to being seen by health care provider (principal)

== ENCOUNTER 2017-10-26 10:33 | Emergency (ER) | payer OTHER, MEDICAID ==
--- NOTE | 2017-10-26 10:45 | EDPHY ---
H & P Time Seen by Provider: 10/26/17 10:37 HPI/ROS: CHIEF COMPLAINT: Anxiety attack HISTORY OF PRESENT ILLNESS: The patient is a 52 year old female with a history of anxiety the presents to the emergency department stating she is having an anxiety attack. Patient felt anxious this morning. She took an Ativan at 9:30 a.m.. She initially felt that this did not help. She became more anxious and developed a full"anxiety attack."She called EMS. On their arrival patient appeared quite anxious but she improved in route. When I evaluated the patient she stated she felt better. She denies chest pain or shortness of breath. No abdominal pain. No recent trauma. She takes her medications as directed. REVIEW OF SYSTEMS: My complete review of systems is negative except as mentioned in the HPI. Past Medical/Surgical History: Includes anxiety Smoking Status: Current every day smoker Physical Exam: Vitals noted GENERAL: Well-appearing, in no acute distress, alert. HEENT: Eyes normal to inspection, normal pharynx, no signs of dehydration. NECK: No thyromegaly, no lymphadenopathy, supple. RESPIRATORY: Clear to auscultation bilaterally, no rales, rhonchi or wheezing. CVS: Regular rate and rhythm, no rubs, murmurs, or gallops. ABDOMEN: Soft, nontender, nondistended, no organomegaly. BACK: Normal to inspection, no CVA tenderness. SKIN: Normal color, no rash, warm, dry. No pallor. EXTREMITIES: No pedal edema, no calf tenderness, no Homans sign or cords, no joint swelling. NEURO/PSYCH: Alert and oriented x3, normal mood and affect, normal motor sensory exam. No obvious cranial nerve deficit. Constitutional: Initial Vital Signs Temperature (C) 36.7 C 10/26/17 10:39 Heart Rate 74 10/26/17 10:39 Respiratory Rate 16 10/26/17 10:39 Blood Pressure 117/81 H 10/26/17 10:39 O2 Sat (%) 92 10/26/17 10:39 O2 Delivery Mode Room Air Allergies/Adverse Reactions: haloperidol [From Haldol] Allergy (Verified 10/26/17 10:37) haloperidol lactate [From Haldol] Allergy (Verified 10/26/17 10:37) lithium Allergy (Verified 10/26/17 10:37) marijuana Allergy (Verified 10/26/17 10:37) propranolol [Propranolol] Allergy (Verified 10/26/17 10:37) Home Medications: Medication Instructions Recorded Divalproex [Depakote] 1,000 mg PO DAILY 05/02/11 LORazepam [Ativan] 1 mg PO 12/10/14 LORazepam [Ativan] 1 mg PO BID PRN #8 tab 05/09/16 Gabapentin 10/26/17 Medical Decision Making ED Course/Re-evaluation: I met EMS on arrival. I took report from the hand hardener. On the patient's arrival she was feeling much better. She had no complaints. Patient did not want more medication. I had case management evaluate the patient. The patient informed case management that she felt comfortable being discharged home Patient was given warnings prior to leaving. She was given instruction on Ativan use. She will return with worsening symptoms. Differential Diagnosis: My differential includes but is not limited to anxiety, ACS, acute [place], electrolyte abnormality, sugar abnormality, self-harm Departure - Departure Disposition: Home, Routine, Self-Care Clinical Impression: Anxiety Condition: Good Instructions: Anxiety (ED) Additional Instructions: Return with increasing anxiety or any other concerns. Take Ativan if you are feeling anxious. Referrals: [facility],. [Clinic] - 2-3 days, call for appt.
[2017-10-26 11:24] VITALS: BP 128/74
--- NOTE | 2017-10-26 11:44 | ASMTCMCOM ---
CM Note CM Note Notes: Pt presented to the ED via EMS from her apartment. Pt reports having anxiety despite taking her Ativan at home around 0930. Spoke w/pt and she states she is already feeling "much better." Pt pleasant and smiling. Pt immediately acknowledged/stated "I haven't been in here for 6 months," and we discussed how well she has been doing outpatient. Pt has transitioned back to living at [facility] [address] and has been coping w/her anxiety w/Ativan at home, deep breathing exercises, listening to music, speaking w/her brother, etc. Pt states her brother is out of town but does not think this has to do with her increased anxiety today. Pt states she has an appt tomorrow w/[facility] at [facility] to receive her medication injection. Pt also states she plans on making an appt w/her psychiatrist, Dr Aly. Pt was also provided a [facility] pamphlet and the [place] Crisis Support Line # and [facility] graphic specialist Line # were highlighted for her. We discussed that she can call these numbers when she gets anxoius and needs to talk to someone. Pt mentioned she also sometimes calls [facility]'s Walk-In / Crisis Intervention Services #[phone]. Pt gave permission for this CM to refer her to [facility]; e-mail referral/request for follow-up sent to Jina Sanders w/[facility]. Pt wants to return home and requested assistance getting home via Medicaid cab. This CM called and arranged for Medicaid cab. CM available for further assistance if needed. Date Signed: 10/26/2017 11:43 AM Electronically Signed By:Park Flowers RN
--- NOTE | 2017-10-26 11:46 | ASDISCHSUM ---
Discharge Information Plan Status:Home with No Needs Medically Cleared to Leave: Discharge Date:10/26/2017 11:24 AM CM D/C Disposition:Home, Routine, Self-Care ADT D/C Disposition:Home, Routine, Self-Care Projected Discharge Date:10/26/2017 11:24 AM Transportation at D/C:Medicaid Transportation Discharge Delay Reason: Follow-Up Date:10/26/2017 11:24 AM Discharge Slot: Final Diagnosis: Placement Information Patient Contact Information Contact Name:GAIL Relationship: Address: Work Phone: City: [facility][1] Phone: State/Zip Code: Email: Financial Information Financial Class:Medicare Primary Plan Desc:MEDICARE OUTPATIENT Primary Plan Number:[id number] Secondary Plan Desc:MEDICAID HEALTH FIRST VIDEO NETWORK ENGINEER Secondary Plan Number:[id number] Assessment Information [facility] CM Progress Note CM Note CM Note Notes: Pt presented to the ED via EMS from her apartment. Pt reports having anxiety despite taking her Ativan at home around 0930. Spoke w/pt and she states she is already feeling "much better." Pt pleasant and smiling. Pt immediately acknowledged/stated "I haven't been in here for 6 months," and we discussed how well she has been doing outpatient. Pt has transitioned back to living at [facility] and has been coping w/her anxiety w/Ativan at home, deep breathing exercises, listening to music, speaking w/her brother, etc. Pt states her brother is out of town but does not think this has to do with her increased anxiety today. Pt states she has an appt tomorrow w/[facility] at [facility] to receive her medication injection. Pt also states she plans on making an appt w/her psychiatrist, Dr Aly. Pt was also provided a [facility] pamphlet and the [place] Crisis Support Line # and [facility] [place] maintenance electrician Line # were highlighted for her. We discussed that she can call these numbers when she gets anxoius and needs to talk to someone. Pt mentioned she also sometimes calls [facility]'s Walk-In / Crisis Intervention Services #[phone]. Pt gave permission for this CM to refer her to [facility]; e-mail referral/request for follow-up sent to Jina jones/[facility]. Pt wants to return home and requested assistance getting home via Medicaid cab. This CM called and arranged for Medicaid cab. CM available for further assistance if needed. Date Signed: 10/26/2017 11:43 AM Electronically Signed By:Park Flowers RN Intervention Information Intervention Type:Community Resources Date of Service:10/26/2017 11:44 AM Patient Type:Emergency Room Staff Member:ZARA Flowers Sharon Hours:0.25 Discipline:Donations Attendant Severity: Comment:[facility] Intervention Type:Transportation Date of Service:10/26/2017 11:44 AM Patient Type:Emergency Room Staff Member:ZARA Flowers Sharon Hours:0.25 Discipline:Donations Attendant Severity: Comment:Medicaid cab Intervention Type:Emotional Support Date of Service:10/26/2017 11:44 AM Patient Type:Emergency Room Staff Member:ZARA Flowers Sharon Hours:0.25 Discipline:Donations Attendant Severity: Comment:
== END 2017-10-26 11:24 | disposition home or self-care (01) ==
LOC: EDUNIT#
DX: F41.9 Anxiety disorder, unspecified (principal); F17.200 Nicotine dependence, unspecified, uncomplicated

== ENCOUNTER 2018-04-12 13:55 | Emergency (ER) | payer OTHER, MEDICAID ==
[~2018-04-12 13:55] MED LIST: BENZTROPINE MESYLATE 1 MG TAB PO SCH; DIVALPROEX ER 500 MG TAB PO SCH; GABAPENTIN 300 MG CAP PO SCH; QUEtiapine FUMARATE 200 MG TAB PO SCH
--- NOTE | 2018-04-12 14:02 | EDPHY ---
H & P Stated Complaint: anxiety Time Seen by Provider: 04/12/18 14:02 - Personal History LMP (Females 10-55): Unknown Current Tetanus Diphtheria and Acellular Pertussis (TDAP): Yes - Medical/Surgical History Hx Asthma: No Hx Chronic Respiratory Disease: No Hx Diabetes: No Hx Cardiac Disease: No Hx Renal Disease: No Hx Cirrhosis: No Hx Alcoholism: No Hx HIV/AIDS: No Hx Splenectomy or Spleen Trauma: No Other PMH: bipolar, anxiety, appy, tremors - Social History Smoking Status: Current every day smoker Constitutional: Initial Vital Signs Temperature (C) 36.6 C 04/12/18 13:59 Heart Rate 77 04/12/18 13:59 Respiratory Rate 18 04/12/18 13:59 Blood Pressure 130/85 H 04/12/18 13:59 O2 Sat (%) 97 04/12/18 13:59 O2 Delivery Mode Room Air Allergies/Adverse Reactions: haloperidol [From Haldol] Allergy (Verified 12/14/17 14:56) haloperidol lactate [From Haldol] Allergy (Verified 12/14/17 14:56) lithium Allergy (Verified 12/14/17 14:56) marijuana Allergy (Verified 12/14/17 14:56) propranolol [Propranolol] Allergy (Verified 12/14/17 14:56) Home Medications: Medication Instructions Recorded Divalproex [Depakote] 1,000 mg PO DAILY 05/02/11 LORazepam [Ativan] 1 mg PO 12/10/14 LORazepam [Ativan] 1 mg PO BID PRN #8 tab 05/09/16 Gabapentin 10/26/17 Medical Decision Making ED Course/Re-evaluation: CHIEF COMPLAINT: Anxious HISTORY OF PRESENT ILLNESS: 53-year-old female who is a frequent Flyer to our location. She gets treated and lives in a correction who dull out her meds. She states that her meds as rock given her today because she took today's meds yesterday. She feels anxious. She is here all the time. She has an open case with Mental Health. She has no specific complaints. REVIEW OF SYSTEMS: A comprehensive 10 system review of systems is otherwise negative aside from elements mentioned in the history of present illness and medical decision making. PHYSICAL EXAM: HR, BP, O2 Sat, RR. Temp noted General Appearance: Alert, well hydrated, appropriate, and non-toxic appearing. Head: Atraumatic without scalp tenderness or obvious injury Eyes: Pupils equal, round, reactive to light and accommodation, EOMI, no trauma , no injection. Ears: Clear bilaterally, no perforation, normal landmarks Nose: Atraumatic, no rhinorrhea, clear. Throat: There is no erythema or exudates, no lesions, normal tonsils, mucus membranes moist. Neck: Supple, 2+ carotid upstroke, nontender, no lymphadenopathy. Respiratory: No retractions, no distress, no wheezes, and no accessory muscle use. Lungs are clear to auscultation bilaterally. Cardiovascular: Regular rate and rhythm, no murmurs, rubs, or gallops. Bilateral carotid, radial, dorsalis pedis, and posterior tibial pulses intact. Good capillary refill all extremities. Gastrointestinal: Abdomen is soft, nontender, non-distended, no masses, no rebound, no guarding, no peritoneal signs. Musculoskeletal: Normal active ROM of all extremities, atraumatic. Neurological: Alert, appropriate, and interactive. The patient has normal DTRs and non-focal cranial nerves, motor, sensory, and cerebellar exam. Skin: No rashes, good turgor, no nodules on palpation. Past medical history: Psychiatric problems Past surgical history: Noncontributory Family history: Noncontributory Social history: Single, not employed, lives in a correction does not abuse tobacco drugs or alcohol DIFFERENTIAL DIAGNOSIS: Includes but is not limited to depression, anxiety, psychosis, drug use MEDICAL DECISION MAKING: This patient feels like she is little more anxious today than usual. She is not sure that she got her meds today from the correction that is post to give her her meds. The case liner is arranging with the correction to accept her back and make sure all of her meds are fine. There is no urgent or emergent problem here. Departure - Departure Disposition: Home, Routine, Self-Care Clinical Impression: Anxiety Condition: Good Instructions: Anxiety (ED) Referrals: Patient,NotPresent [Primary Care Provider] - As per Instructions
[2018-04-12] MEDS ORDERED: LORAZEPAM 1 MG PREPACK#4 BTL TAKEHOME ONE (14:35)
[2018-04-12 15:48] VITALS: BP 116/82
--- NOTE | 2018-04-12 17:23 | ASMTCMCOM ---
CM Note CM Note Notes: Pt presented to the ED via EMS from home for a panic attack. Pt lives in a fdc at [facility]; pt states that she took all of today's meds yesterday because she had increased anxiety yesterday. But now pt doesn't have any meds for today (or tomorrow?); pt unable to give a clear answer to why she also doesn't have meds for tomorrow. Spoke w/Russell at [facility] ([phone]) and she faxed current med list for pt to the ED. Russell states that [facility] does not have staff there on the weekends so they provide clients with enough meds to get them through the weekend but there is no one there to dispense or monitor medication administration. Russell states she will send a message to pt's care team re:pt's ED visit and her taking more of her medications than as prescribed. Pt is well known to this ED but has not been seen here since 12/14/17. Due to pt's past history of calling 911 when she runs out of medications and experiences anxiety, and because she hasn't come to the ED for 4 mos, it was decided to provide pt with today and tomorrow's medication doses via [facility]. Pt provided all of her usual meds for two days, except for Ingrezza which is not stocked here at the pharmacy. Pt verbalizes understanding of medication dosing, administration and to not take more than as prescribed. This CM went over all meds, dosing, etc w/pt and confirmed pt could verbalize back instructions/understanding. Pt states she can call [employer] and set up a Medicaid cab ride home for herself. Pt discharged to the ED waiting area. CM available for further assistance if needed. Date Signed: 04/12/2018 05:22 PM Electronically Signed By:Park Flowers RN
== END 2018-04-12 15:49 | disposition home or self-care (01) ==
LOC: EDUNIT#
DX: F41.9 Anxiety disorder, unspecified (principal)